=== PATIENT | male | born 1995 | race Caucasian/White ===

== ENCOUNTER 2018-11-16 11:52 | Emergency (ER) | payer BC ==
[~2018-11-16] VITALS: Ht 185.4 cm; Wt 61.2 kg
[2018-11-16] MEDS: IV NORMAL SALINE 1,000ML 1,000 ML IV ONE (12:19)
[2018-11-16] MEDS: ONDANSETRON PF 4 MG/2 ML VIAL. IV ONE (12:19)
--- NOTE | 2018-11-16 12:25 | PHYS DOC ---
Past History Past Medical History: No Pertinent History Past Surgical History: Appendectomy Alcohol Use: Occasionally Drug Use: Marijuana Adult General Chief Complaint Chief Complaint: ABDOMINAL PAIN HPI HPI 22-year-old male presents with central abdominal pain and vomiting. The patient had his appendix removed 8 days ago. 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 He presents today with abdominal pain just above the umbilical surgical site. He tells me he's had intermittent severe pain episodes over the last couple of years. At first they thought he had a hiatal hernia. They took his appendix out 8 days ago after another episode of pain. The patient has had vomiting. He denies fever or chills. Review of Systems Review of Systems Constitutional: Denies fever or chills [] Eyes: Denies change in visual acuity, redness, or eye pain [] HENT: Denies nasal congestion or sore throat [] Respiratory: Denies cough or shortness of breath [] Cardiovascular: No additional information not addressed in HPI [] GI: Central abdominal pain, nausea, vomiting. Denies bloody stools or diarrhea [ ] : Denies dysuria or hematuria [] Musculoskeletal: Denies back pain or joint pain [] Integument: Denies rash or skin lesions [] Neurologic: Denies headache, focal weakness or sensory changes [] Endocrine: Denies polyuria or polydipsia [] All other systems were reviewed and found to be within normal limits, except as documented in this note. Current Medications Current Medications Current Medications Medications (Trade) Dose Ordered Sig/Thaina Start Time Stop Time Status Last Admin Dose Admin Ondansetron HCl (Zofran) 4 mg 1X ONCE 11/16/18 12:15 11/16/18 12:16 UNV 11/16/18 12:19 4 MG Sodium Chloride 1,000 ml @ 1,000 mls/hr 1X ONCE 11/16/18 12:15 11/16/18 13:14 UNV 11/16/18 12:19 1,000 MLS/HR Physical Exam Physical Exam Constitutional: Well developed, well nourished, no acute distress, non-toxic appearance. [] HENT: Normocephalic, atraumatic, bilateral external ears normal, oropharynx moist, no oral exudates, nose normal. [] Eyes: PERRLA, EOMI, conjunctiva normal, no discharge. [] Neck: Normal range of motion, no tenderness, supple, no stridor. [] Cardiovascular:Heart rate regular rhythm, no murmur [] Lungs & Thorax: Bilateral breath sounds clear to auscultation [] Abdomen: Vomiting Bowel sounds normal, soft, periumbilical tenderness without guarding, no masses, no pulsatile masses. [] Skin: Warm, dry, no erythema, no rash. [] Back: No tenderness, no CVA tenderness. [] Extremities: No tenderness, no cyanosis, no clubbing, ROM intact, no edema. [] Neurologic: Alert and oriented X 3, normal motor function, normal sensory function, no focal deficits noted. [] Psychologic: Affect normal, judgement normal, mood normal. [] EKG EKG [] Radiology/Procedures Radiology/Procedures [] Impressions: PQRS Compliance statement: One or more of the following individualized dose reduction techniques were utilized for this examination: 1. Automated exposure control. 2. Adjustment of the mA and/or kV according to patient size. 3. Use of iterative reconstruction technique. Indication:Appendectomy eight days ago. Pt has abdominal/sternal epigastric pain, severe vomiting, nausea

TECHNIQUE: CT abdomen and pelvis with IV contrast with multiplanar reformats. COMPARISON: None FINDINGS: Heart is normal in size. No pericardial or pleural effusion. Clear lung bases. Liver, spleen, gallbladder, pancreas, adrenals within normal limits. 3 mm nonobstructing stone in the left kidney. No hydronephrosis. No suspicious renal lesion. No enlarged retroperitoneal or pelvic adenopathy. No free pelvic fluid or ascites. Status post appendectomy. No significant right lower quadrant inflammatory changes. No fluid collection. The prostate and seminal vesicles show no large mass. Urinary bladder is within normal limits. No pneumoperitoneum or pneumatosis intestinalis. Circumferential wall thickening is seen of the scattered loops of small bowel. No suspicious bony lesion. IMPRESSION: 1. Circumferential wall thickening of the scattered loops of small bowel may suggest enteritis. 2. Pontine nonobstructing left renal stone. Electronically signed by: Duy Colin DO (11/16/2018 12:47 PM) [id number] Course & Med Decision Making Course & Med Decision Making Pertinent Labs and Imaging studies reviewed. (See chart for details) The patient's labs are unremarkable. His urinalysis is unremarkable. His CT scan does show some circumferential wall thickening of the small bowel consistent with enteritis. This is likely viral. I will treat him with conservative measures. If he continues to have episodes like this, he should follow up with his PCP and consider further testing for possible Crohn's disease. [] Dragon Disclaimer Dragon Disclaimer This electronic medical record was generated, in whole or in part, using a voice recognition dictation system. Departure Departure: Impression: Primary Impression: Viral enteritis Disposition: HOME, SELF-CARE Condition: STABLE Referrals: PCP,FRANCO (PCP) Patient Instructions: Gastritis, Adult Scripts Ondansetron (ONDANSETRON ODT) 4 Mg Tab.rapdis 1 TAB PO PRN Q6-8HRS PRN for NAUSEA/VOMITING, #16 TAB Prov: GEORGE VILLATORO DO 11/16/18 GEORGE VILLATORO DO Nov 16, 2018 12:25
[2018-11-16 12:26] LABS: BASO % 0 % (0-3); EOS % 1 % (0-3); HEMATOCRIT 52.1 % (39.0-53.0); HEMOGLOBIN 17.7 g/dL (13.0-17.5); LYMPH # 1.3 x10^3/uL (1.0-4.8); LYMPH % 18 % (24-48); MEAN CORPUSCULAR HEMOGLOBIN 31 pg (25-35); MEAN CORPUSCULAR HGB CONC 34 g/dL (31-37); MEAN CORPUSCULAR VOLUME 90 fL (79-100); MONO % 14 % (0-9); NEUT # 4.9 x10^3uL (1.8-7.7); NEUT % 67 % (31-73); PLATELET COUNT 223 x10^3/uL (140-400); RED BLOOD COUNT 5.77 x10^6/uL (4.30-5.70); RED CELL DISTRIBUTION WIDTH 13.6 % (11.5-14.5); WHITE BLOOD COUNT 7.3 x10^3/uL (4.0-11.0)
[2018-11-16] MEDS: HYDROmorphone PF 1 MG/ML DISP.SYRIN IV ONE ×2 (12:28→14:08)
[2018-11-16] MEDS: IOHEXOL 300 MG/ML 75 ML VIAL. IV ONE (12:32)
[2018-11-16 12:40] LABS: ALBUMIN 4.8 g/dL (3.4-5.0); ALBUMIN/GLOBULIN RATIO 1.3 (1.0-1.7); CALCIUM 9.7 mg/dL (8.5-10.1); GFR 92.6; POTASSIUM 3.1 mmol/L (3.5-5.1); TOTAL BILIRUBIN 0.9 mg/dL (0.2-1.0); TOTAL PROTEIN 8.5 g/dL (6.4-8.2)
--- NOTE | 2018-11-16 12:52 | RAD ---
PQRS Compliance statement: One or more of the following individualized dose reduction techniques were utilized for this examination: 1. Automated exposure control. 2. Adjustment of the mA and/or kV according to patient size. 3. Use of iterative reconstruction technique. Indication:Appendectomy eight days ago. Pt has abdominal/sternal epigastric pain, severe vomiting, nausea

TECHNIQUE: CT abdomen and pelvis with IV contrast with multiplanar reformats. COMPARISON: None FINDINGS: Heart is normal in size. No pericardial or pleural effusion. Clear lung bases. Liver, spleen, gallbladder, pancreas, adrenals within normal limits. 3 mm nonobstructing stone in the left kidney. No hydronephrosis. No suspicious renal lesion. No enlarged retroperitoneal or pelvic adenopathy. No free pelvic fluid or ascites. Status post appendectomy. No significant right lower quadrant inflammatory changes. No fluid collection. The prostate and seminal vesicles show no large mass. Urinary bladder is within normal limits. No pneumoperitoneum or pneumatosis intestinalis. Circumferential wall thickening is seen of the scattered loops of small bowel. No suspicious bony lesion. IMPRESSION: 1. Circumferential wall thickening of the scattered loops of small bowel may suggest enteritis. 2. Pontine nonobstructing left renal stone. Electronically signed by: Duy Colin DO (11/16/2018 12:47 PM) [id number]
[2018-11-16 13:33] LABS: BILIRUBIN,URINE NEG (NEG); CLARITY,URINE CLEAR; COLOR,URINE YELLOW; GLUCOSE,URINE NEG (NEG); NITRITE,URINE NEG (NEG); UROBILINOGEN,URINE 0.2 mg/dL (0.2 mg/dL)
[2018-11-16 13:34] LABS: BACTERIA,URINE 0 /HPF (0-FEW); RBC,URINE RARE /HPF (0-2); SQUAMOUS EPITHELIAL CELL,UR FEW /LPF; WBC,URINE RARE /HPF (0-4)
[2018-11-16] MEDS ORDERED: ONDA4TAB12 PO (13:42)
[2018-11-16 14:18] VITALS: BP 127/78
== END 2018-11-16 14:24 | disposition home or self-care (01) ==
LOC: ER 11:52
DX: A08.4 Viral intestinal infection, unspecified (principal); R11.2 Nausea with vomiting, unspecified; Z90.89 Acquired absence of other organs
CPT/HCPCS: 36415; 74177; 80053; 81001; 83690; 85025; 96361; 96374; 96375; 96376; J1170; J2405; Q9967; 99284-25; J7030

== ENCOUNTER 2018-11-18 07:24 | Emergency (ER) | payer BC ==
[~2018-11-18] VITALS: Ht 170.2 cm; Wt 63.5 kg
[~2018-11-18 07:24] MED LIST: ONDA4TAB12 PO
[2018-11-18] MEDS ORDERED: IV NORMAL SALINE 1,000ML 1,000 ML IV SCH (07:35)
[2018-11-18 07:36] VITALS: BP 147/103
--- NOTE | 2018-11-18 07:51 | PHYS DOC ---
Past History Past Medical History: No Pertinent History Past Surgical History: Appendectomy Alcohol Use: Occasionally Drug Use: Marijuana Adult General Chief Complaint Chief Complaint: GI PROBLEM HPI HPI Patient is a 22-year-old male who presents with complaint of abdominal pain with nausea and vomiting. Patient was seen here a couple of days ago and thickening of the small intestine was found. Patient has been scheduled to see a GI specialist and has an appointment for next Thursday. Patient states that he has been taking Zofran that was prescribed but states that every time he takes that he throws up. Patient rates his pain to be severe and states that every time he tries to have a bowel movement, he starts to have abdominal pain. That' s when his vomiting starts. Review of Systems Review of Systems Constitutional: Denies fever or chills [] Respiratory: Denies cough or shortness of breath [] Cardiovascular: No additional information not addressed in HPI [] GI: Complains of abdominal pain with nausea and vomiting. Denies diarrhea [] Neurologic: Denies headache, focal weakness or sensory changes [] All other systems were reviewed and found to be within normal limits, except as documented in this note. Current Medications Current Medications Current Medications Medications (Trade) Dose Ordered Sig/Thania Start Time Stop Time Status Last Admin Dose Admin Butorphanol Tartrate (Stadol) 1 mg 1X ONCE 11/18/18 08:10 11/18/18 08:11 Diphenhydramine HCl (Benadryl) 25 mg 1X ONCE 11/18/18 08:10 11/18/18 08:11 Metoclopramide HCl (Reglan Vial) 10 mg 1X ONCE 11/18/18 08:10 11/18/18 08:11 Sodium Chloride 1,000 ml @ 1,000 mls/hr Q1H 11/18/18 07:35 11/18/18 08:34 Allergies Allergies Allergies Coded Allergies Type Severity Reaction Last Updated Verified No Known Drug Allergies 11/16/18 No Physical Exam Physical Exam Constitutional: Well developed, well nourished, no acute distress, non-toxic appearance. [] HENT: Normocephalic, atraumatic, bilateral external ears normal, oropharynx moist, no oral exudates, nose normal. [] Eyes: PERRLA, EOMI, conjunctiva normal, no discharge. [] Neck: Normal range of motion, no tenderness, supple, no stridor. [] Cardiovascular: Regular rate and rhythm [] Lungs & Thorax: Bilateral breath sounds clear to auscultation [] Abdomen: Bowel sounds normal, soft, with diffuse reported tenderness. [] Skin: Warm, dry, no erythema, no rash. [] Extremities: No tenderness, no cyanosis, no clubbing, ROM intact, no edema. [] Neurologic: Alert and oriented X 3, no focal deficits noted. [] Current Patient Data Vital Signs Vital Signs Date Time Temp Pulse Resp B/P (MAP) Pulse Ox O2 Delivery O2 Flow Rate FiO2 11/18/18 07:36 98.7 75 24 99 Room Air EKG EKG [] Radiology/Procedures Radiology/Procedures [] Course & Med Decision Making Course & Med Decision Making Pertinent Labs and Imaging studies reviewed. (See chart for details) [] Dragon Disclaimer Dragon Disclaimer This electronic medical record was generated, in whole or in part, using a voice recognition dictation system. Departure Departure: Impression: Primary Impression: Generalized abdominal pain Additional Impression: Nausea & vomiting Disposition: 01 HOME, SELF-CARE Condition: STABLE Referrals: PCP,NO (PCP) Patient Instructions: Abdominal Migraine, Nausea and Vomiting Scripts Polyethylene Glycol 3350 (MIRALAX) 17 Gm Powd.pack 1 PACKET PO DAILY PRN for CONSTIPATION, #14 PACKET Prov: KURTIS RICHTER Jr. DO 11/18/18 Metoclopramide Hcl (REGLAN) 10 Mg Tablet 1 TAB PO QID PRN for NAUSEA/VOMITING, #20 TAB Prov: KURTIS RICHTER Jr. DO 11/18/18 Problem Qualifiers Additional Impression: Nausea & vomiting Vomiting type: unspecified Vomiting Intractability: unspecified Qualified Codes: R11.2 - Nausea with vomiting, unspecified KURTIS RICHTER Jr. DO Nov 18, 2018 07:51
[2018-11-18 08:02] LABS: BASO % 1 % (0-3); EOS # 0.1 x10^3/uL (0.0-0.7); EOS % 2 % (0-3); HEMATOCRIT 50.3 % (39.0-53.0); LYMPH % 61 % (24-48); MEAN CORPUSCULAR HEMOGLOBIN 30 pg (25-35); MEAN CORPUSCULAR HGB CONC 34 g/dL (31-37); MEAN CORPUSCULAR VOLUME 90 fL (79-100); MONO # 0.7 x10^3/uL (0.0-1.1); MONO % 21 % (0-9); NEUT # 0.5 x10^3uL (1.8-7.7); NEUT % 15 % (31-73); PLATELET COUNT 182 x10^3/uL (140-400); RED BLOOD COUNT 5.58 x10^6/uL (4.30-5.70); RED CELL DISTRIBUTION WIDTH 13.5 % (11.5-14.5); WHITE BLOOD COUNT 3.3 x10^3/uL (4.0-11.0)
[2018-11-18] MEDS ORDERED: METOCLOPRAMIDE HCL 10 MG/2 ML VIAL. IV ONE (08:10)
[2018-11-18] MEDS ORDERED: BUTORPHANOL 2 MG VIAL. IV ONE (08:10)
[2018-11-18] MEDS ORDERED: diphenhydrAMINE 50 MG/ML VIAL IVP ONE (08:10)
[2018-11-18 08:15] LABS: ALBUMIN 4.5 g/dL (3.4-5.0); ALBUMIN/GLOBULIN RATIO 1.3 (1.0-1.7); CALCIUM 9.6 mg/dL (8.5-10.1); CREATININE 1.1 mg/dL (0.7-1.3); POTASSIUM 3.2 mmol/L (3.5-5.1); TOTAL PROTEIN 8.1 g/dL (6.4-8.2)
[2018-11-18 09:20] LABS: BACTERIA,URINE 0 /HPF (0-FEW); BILIRUBIN,URINE NEG (NEG); CLARITY,URINE CLEAR; COLOR,URINE YELLOW; GLUCOSE,URINE NEG (NEG); NITRITE,URINE NEG (NEG); RBC,URINE RARE /HPF (0-2); SQUAMOUS EPITHELIAL CELL,UR OCC /LPF; UROBILINOGEN,URINE 0.2 mg/dL (0.2 mg/dL); WBC,URINE 0 /HPF (0-4)
[2018-11-18 09:24] LABS: AMPHETAMINE/METHAMPHETAMINE NEG (NEG); BARBITURATES NEG (NEG); BENZODIAZEPINES NEG (NEG); CANNABINOIDS POS (NEG); COCAINE NEG (NEG); METHADONE NEG (NEG); OPIATES NEG (NEG); PHENCYCLIDINE NEG (NEG)
[2018-11-18] MEDS ORDERED: METO10TA81 PO (09:41)
[2018-11-18] MEDS ORDERED: POLY17PO5 PO (09:41)
[2018-11-18] MEDS ORDERED: POTASSIUM CHLORIDE 20 MEQ TABLET.ER. PO ONE (09:50)
== END 2018-11-18 09:50 | disposition home or self-care (01) ==
LOC: ER 07:24
DX: R10.84 Generalized abdominal pain (principal); R11.2 Nausea with vomiting, unspecified; Z90.89 Acquired absence of other organs
CPT/HCPCS: 36415; 80053; 80307; 81001; 83690; 85025; 96361; 96374; 96375; 99283; J0595; J1200; J2765; J7030

== ENCOUNTER → 2018-11-29 | Outpatient (CLI) | payer BC ==
[2018-11-18 07:36] VITALS: BP 147/103
[~2018-11-29] MED LIST changes: +METO10TA81 PO; +POLY17PO5 PO
[2018-11-29 11:29] LABS: BASO % 0 % (0-3); EOS % 1 % (0-3); HEMATOCRIT 48.1 % (39.0-53.0); HEMOGLOBIN 16.1 g/dL (13.0-17.5); LYMPH # 0.8 x10^3/uL (1.0-4.8); LYMPH % 30 % (24-48); MEAN CORPUSCULAR HEMOGLOBIN 31 pg (25-35); MEAN CORPUSCULAR HGB CONC 34 g/dL (31-37); MEAN CORPUSCULAR VOLUME 92 fL (79-100); MONO # 0.3 x10^3/uL (0.0-1.1); MONO % 13 % (0-9); NEUT # 1.5 x10^3uL (1.8-7.7); NEUT % 56 % (31-73); PLATELET COUNT 167 x10^3/uL (140-400); RED BLOOD COUNT 5.25 x10^6/uL (4.30-5.70); RED CELL DISTRIBUTION WIDTH 13.5 % (11.5-14.5); WHITE BLOOD COUNT 2.7 x10^3/uL (4.0-11.0)
== END | disposition home or self-care (01) ==
LOC: LAB 11:05
PROVIDERS: ATTEND Internal Medicine Gastroenterology
DX: R19.4 Change in bowel habit (principal)
CPT/HCPCS: 36415; 85025; 86140

== ENCOUNTER 2019-03-17 12:25 | Emergency (ER) | payer BC ==
[~2019-03-17] VITALS: Ht 182.9 cm; Wt 59.0 kg
[2019-03-17] MEDS ORDERED: IV NORMAL SALINE 1,000ML 1,000 ML IV SCH (12:36)
--- NOTE | 2019-03-17 12:43 | PHYS DOC ---
Past History Past Medical History: No Pertinent History Past Surgical History: Appendectomy Smoking: Cigarettes Alcohol Use: Occasionally Drug Use: Marijuana Adult General Chief Complaint Chief Complaint: [facility]BDOM[facility]AL PAIN [facility] HPI Patient is a 23-year-old male who presents to the emergency department for evaluation. He states this morning he awakened with epigastric abdominal pain, described as an intense cramp. He states he tried to make himself vomit once, to help alleviate his symptoms, but vomited only clear liquid. He did not have any bloody emesis. He states he has chronic diarrhea, but has not followed up with GI in the past as he has been referred to. He denies any change in his bowel habits, or bloody stools, dizziness or lightheadedness, fevers or chills. He has had similar symptoms in the past several times. He does admit to smoking marijuana regularly. He states he does not smoke daily but mostly on weekends. There are no alleviating or exacerbating factors to the patient's symptoms. Review of Systems Review of Systems Constitutional: Denies fever or chills [] Eyes: Denies change in visual acuity, redness, or eye pain [] HENT: Denies nasal congestion or sore throat [] Respiratory: Denies cough or shortness of breath [] Cardiovascular: The patient denies any shortness of breath, chest pain, pa lpitations, or orthopnea [] GI: No additional information not addressed in HPI [] : Denies dysuria or hematuria [] Musculoskeletal: Denies back pain or joint pain [] Integument: Denies rash or skin lesions [] Neurologic: Denies headache, focal weakness or sensory changes [] Endocrine: Denies polyuria or polydipsia [] All other systems were reviewed and found to be within normal limits, except as documented in this note. Allergies Allergies Allergies Coded Allergies Type Severity Reaction Last Updated Verified No Known Drug Allergies 11/16/18 No Physical Exam Physical Exam PHYSICAL EXAM: CONSTITUTIONAL: Well developed, well nourished HEAD: normocephalic, atraumatic EENT: PERRL, EOMI. Conjunctivae normal color, sclerae non-icteric; moist mucous membranes. NECK: Supple, non-tender; no meningismus. LUNGS: Lungs CTA, breathing even and unlabored. Normal air movement. HEART: Regular rate and rhythm, no murmur CHEST: No deformity; non-tender ABDOMEN: The abdomen is soft, normal bowel sounds are present, there is focal epigastric tenderness to palpation, without rebound or guarding, the remainder the abdomen is soft and non-tender, no masses or bruits. EXTREM: Normal ROM; no deformity, no calf tenderness. Normal pulses palpable in all extremities. There is no pedal edema. SKIN: No rash; no diaphoresis NEURO: Alert; normal speech and cognition; CN's grossly intact; strength grossly intact without focal deficit. BACK: No CVA TTP. PSYCHIATRIC: The patient exhibits a moderately anxious affect. Current Patient Data Vital Signs Vital Signs Date Time Temp Pulse Resp B/P (MAP) Pulse Ox O2 Delivery O2 Flow Rate FiO2 03/17/19 12:35 97.4 86 22 143/77 (99) 100 Room Air Lab Results Laboratory Tests Test 03/17/19 12:45 03/17/19 13:01 White Blood Count 8.7 x10^3/uL Red Blood Count 5.57 x10^6/uL Hemoglobin 17.0 g/dL Hematocrit 50.5 % Mean Corpuscular Volume 91 fL Mean Corpuscular Hemoglobin 31 pg Mean Corpuscular Hemoglobin Concent 34 g/dL Red Cell Distribution Width 13.2 % Platelet Count 278 x10^3/uL Neutrophils (%) (Auto) 45 % Lymphocytes (%) (Auto) 46 % Monocytes (%) (Auto) 8 % Eosinophils (%) (Auto) 1 % Basophils (%) (Auto) 1 % Neutrophils # (Auto) 3.8 x10^3uL Lymphocytes # (Auto) 4.0 x10^3/uL Monocytes # (Auto) 0.7 x10^3/uL Eosinophils # (Auto) 0.0 x10^3/uL Basophils # (Auto) 0.1 x10^3/uL Sodium Level 140 mmol/L Potassium Level 3.0 mmol/L Chloride Level 101 mmol/L Carbon Dioxide Level 22 mmol/L Anion Gap 17 Blood Urea Nitrogen 17 mg/dL Creatinine 1.1 mg/dL Estimated GFR (Cockcroft-Gault) 82.2 BUN/Creatinine Ratio 15 Glucose Level 122 mg/dL Calcium Level 9.9 mg/dL Total Bilirubin 0.8 mg/dL Aspartate Amino Transf (AST/SGOT) 18 U/L Alanine Aminotransferase (ALT/SGPT) 25 U/L Alkaline Phosphatase 82 U/L Total Protein 8.2 g/dL Albumin 4.7 g/dL Albumin/Globulin Ratio 1.3 Lipase 92 U/L Urine Collection Type Unknown Urine Color Yellow Urine Clarity Clear Urine pH 5.5 Urine Specific Clayton 1.025 Urine Protein Neg Urine Glucose (UA) Neg mg/dL Urine Ketones (Stick) Trace mg/dL Urine Blood Neg Urine Nitrite Neg Urine Bilirubin Neg Urine Urobilinogen Dipstick 0.2 mg/dL Urine Leukocyte Esterase Neg Urine RBC Occ /HPF Urine WBC 1-4 /HPF Urine Squamous Epithelial Cells Few /LPF Urine Bacteria 0 /HPF Urine Mucus Mod /LPF Current Medications Medications (Trade) Dose Ordered Sig/Thania Route PRN Reason Start Time Stop Time Status Last Admin Dose Admin Haloperidol Lactate (Haldol) 2.5 mg 1X ONCE IVP 03/17/19 13:15 03/17/19 13:16 DC 03/17/19 12:55 Lorazepam (Ativan Inj) 1 mg 1X ONCE IV 03/17/19 13:15 03/17/19 13:16 DC 03/17/19 12:54 Famotidine (Pepcid Vial) 20 mg 1X ONCE IVP 03/17/19 13:15 03/17/19 13:16 DC 03/17/19 12:55 Multi-Ingredient Mouthwash/Gargle (Gi Cocktail) 20 ml 1X ONCE PO 03/17/19 13:15 03/17/19 13:16 DC 03/17/19 12:55 Sodium Chloride 1,000 ml @ 1,000 mls/hr Q1H IV 03/17/19 12:36 03/17/19 13:35 DC 03/17/19 13:00 EKG EKG [] Radiology/Procedures Radiology/Procedures [] Course & Med Decision Making Course & Med Decision Making Pertinent Lab studies reviewed. (See chart for details) []1:50 PM: I went to go back and discussed test results and recheck the patient, but found that that he has eloped from the emergency department. Dragon Disclaimer Dragon Disclaimer This electronic medical record was generated, in whole or in part, using a voice recognition dictation system. Departure Departure: Impression: Primary Impression: Abdominal pain Additional Impression: Nausea & vomiting Disposition: AGAINST MEDICAL ADVICE Condition: STABLE Referrals: PCP,NO (PCP) Problem Qualifiers BUSTER KAYE MD Mar 17, 2019 12:43
[2019-03-17 12:54] LABS: BASO # 0.1 x10^3/uL (0.0-0.2); BASO % 1 % (0-3); EOS % 1 % (0-3); HEMATOCRIT 50.5 % (39.0-53.0); LYMPH % 46 % (24-48); MEAN CORPUSCULAR HEMOGLOBIN 31 pg (25-35); MEAN CORPUSCULAR HGB CONC 34 g/dL (31-37); MEAN CORPUSCULAR VOLUME 91 fL (79-100); MONO # 0.7 x10^3/uL (0.0-1.1); MONO % 8 % (0-9); NEUT # 3.8 x10^3uL (1.8-7.7); NEUT % 45 % (31-73); PLATELET COUNT 278 x10^3/uL (140-400); RED BLOOD COUNT 5.57 x10^6/uL (4.30-5.70); RED CELL DISTRIBUTION WIDTH 13.2 % (11.5-14.5); WHITE BLOOD COUNT 8.7 x10^3/uL (4.0-11.0)
[2019-03-17 13:09] LABS: ALBUMIN 4.7 g/dL (3.4-5.0); ALBUMIN/GLOBULIN RATIO 1.3 (1.0-1.7); CALCIUM 9.9 mg/dL (8.5-10.1); CREATININE 1.1 mg/dL (0.7-1.3); GFR 82.2; TOTAL BILIRUBIN 0.8 mg/dL (0.2-1.0); TOTAL PROTEIN 8.2 g/dL (6.4-8.2)
[2019-03-17 13:10] VITALS: BP 143/77
[2019-03-17] MEDS ORDERED: FAMOTIDINE 20 MG/2 ML VIAL IVP ONE (13:15)
[2019-03-17] MEDS ORDERED: HALOPERIDOL LACT 5 MG/ML VIAL. IVP ONE (13:15)
[2019-03-17] MEDS ORDERED: LIDO:MAALOX 1:1 20 ML SINGLE DOSE. PO ONE (13:15)
[2019-03-17 13:30] LABS: BACTERIA,URINE 0 /HPF (0-FEW); BILIRUBIN,URINE NEG (NEG); CLARITY,URINE CLEAR; COLOR,URINE YELLOW; GLUCOSE,URINE NEG (NEG); NITRITE,URINE NEG (NEG); RBC,URINE OCC /HPF (0-2); SQUAMOUS EPITHELIAL CELL,UR FEW /LPF; UROBILINOGEN,URINE 0.2 mg/dL (0.2 mg/dL)
== END 2019-03-17 13:59 | disposition left against medical advice (07) ==
LOC: ER 12:25
DX: R10.13 Epigastric pain (principal); R11.2 Nausea with vomiting, unspecified; K52.9 Noninfective gastroenteritis and colitis, unspecified; F17.210 Nicotine dependence, cigarettes, uncomplicated; Z90.89 Acquired absence of other organs
CPT/HCPCS: 36415; 80053; 81001; 83690; 85025; 96361; 96374; 96375; 99284; J1630; J2060; J3490; J7030

== ENCOUNTER 2019-11-07 07:48 | Emergency (ER) | payer BC ==
[~2019-11-07] VITALS: Ht 182.9 cm; Wt 57.5 kg
[2019-11-07] MEDS ORDERED: IV NORMAL SALINE 1,000ML 1,000 ML IV ONE (08:15)
--- NOTE | 2019-11-07 08:21 | PHYS DOC ---
Past History Past Medical History: GERD, Other Additional Past Medical Histor: hital hernia Past Surgical History: Appendectomy, Other Additional Past Surgical Histo: right foot surgery Smoking: Cigarettes Alcohol Use: Rarely Drug Use: Marijuana Social History Narrative: last time was thursday night Adult General Chief Complaint Chief Complaint: NAUSEA/VOMITING/[facility] HPI 23-year-old male presents with epigastric abdominal pain and vomiting. The patient had this had symptoms like this for quite some time. He is currently seeing a GI specialist and is getting worked up. No definitive diagnosis has been made. He has had an EGD with illness finding being a hiatal hernia. He does not know how large. The patient's symptoms seem to be early in the morning. When he gets up from bed he has a fullness feeling in his epigastric area. It is a dull pain. Sometimes he is nauseated and vomits, sometimes he does not. After he vomits, sometimes the pain is better for a little while. He has had CT scans and ultrasounds with no significant findings as far as he knows. He is a regular marijuana user. He last used 2 days ago. He is supposed and a proton pump inhibitor daily. He has Zofran at home for vomiting, but did not take any today. He denies fever or chills. Review of Systems Review of Systems Constitutional: Denies fever or chills [] Eyes: Denies change in visual acuity, redness, or eye pain [] HENT: Denies nasal congestion or sore throat [] Respiratory: Denies cough or shortness of breath [] Cardiovascular: No additional information not addressed in HPI [] GI: Epigastric abdominal pain, nausea, vomiting. [] : Denies dysuria or hematuria [] Musculoskeletal: Denies back pain or joint pain [] Integument: Denies rash or skin lesions [] Neurologic: Denies headache, focal weakness or sensory changes [] Endocrine: Denies polyuria or polydipsia [] All other systems were reviewed and found to be within normal limits, except as documented in this note. Current Medications Current Medications Current Medications Medications (Trade) Dose Ordered Sig/Thania Start Time Stop Time Status Last Admin Dose Admin Diphenhydramine HCl (Benadryl) 25 mg 1X ONCE 11/07/19 08:45 11/07/19 08:46 Multi-Ingredient Mouthwash/Gargle (Gi Cocktail) 20 ml 1X ONCE 11/07/19 08:45 11/07/19 08:46 Ondansetron HCl (Zofran) 4 mg 1X ONCE 11/07/19 08:45 11/07/19 08:46 Sodium Chloride 1,000 ml @ 1,000 mls/hr 1X ONCE 11/07/19 08:15 11/07/19 09:14 Allergies Allergies Allergies Coded Allergies Type Severity Reaction Last Updated Verified No Known Drug Allergies 11/07/19 No Physical Exam Physical Exam Constitutional: Well developed, well nourished, no acute distress, non-toxic appearance. [] HENT: Normocephalic, atraumatic, bilateral external ears normal, oropharynx moist, no oral exudates, nose normal. [] Eyes: PERRLA, EOMI, conjunctiva normal, no discharge. [] Neck: Normal range of motion, no tenderness, supple, no stridor. [] Cardiovascular:Heart rate regular rhythm, no murmur [] Lungs & Thorax: Bilateral breath sounds clear to auscultation [] Abdomen: Bowel sounds normal, soft, epigastric tenderness, no masses, no pulsatile masses. [] Skin: Warm, dry, no erythema, no rash. [] Back: No tenderness, no CVA tenderness. [] Extremities: No tenderness, no cyanosis, no clubbing, ROM intact, no edema. [] Neurologic: Alert and oriented X 3, normal motor function, normal sensory function, no focal deficits noted. [] Psychologic: Affect normal, judgement normal, mood anxious. [] Current Patient Data Vital Signs Vital Signs Date Time Temp Pulse Resp B/P (MAP) Pulse Ox O2 Delivery O2 Flow Rate FiO2 11/07/19 07:57 97.5 68 20 131/74 (93) 100 Room Air EKG EKG [] Radiology/Procedures Radiology/Procedures [] Course & Med Decision Making Course & Med Decision Making Pertinent Labs and Imaging studies reviewed. (See chart for details) The patient's labs are unremarkable. For his cough/vomiting I have given the patient 1 L normal saline, 4 mg of Zofran, 20 mg of Pepcid, 40 mg Protonix, and a GI cocktail. His vomiting is only associated with coughing. It appears to be somewhat self-induced. The emesis is just clear fluid. The patient is already seeing a specialist. I don't have any additional ideas to add, though cyclic vomiting from repeat marijuana use is also certainly in the differential. I have given him a Ary 5/325 for pain. He is stable for discharge at this time. [] Dragon Disclaimer Dragon Disclaimer This electronic medical record was generated, in whole or in part, using a voice recognition dictation system. Departure Departure: Impression: Primary Impression: Nausea & vomiting Additional Impression: Epigastric abdominal pain Disposition: 01 HOME, SELF-CARE Condition: STABLE Referrals: PCP,FRANCO (PCP) Patient Instructions: Nausea and Vomiting, [id number] Problem Qualifiers Primary Impression: Nausea & vomiting Vomiting type: unspecified Vomiting Intractability: non-intractable Qualified Codes: R11.2 - Nausea with vomiting, unspecified GEORGE VILLATORO DO Nov 07, 2019 08:21
[2019-11-07 08:37] LABS: BASO # 0.1 x10^3/uL (0.0-0.2); BASO % 1 % (0-3); EOS # 0.1 x10^3/uL (0.0-0.7); EOS % 1 % (0-3); HEMATOCRIT 52.8 % (39.0-53.0); HEMOGLOBIN 17.4 g/dL (13.0-17.5); LYMPH # 2.8 x10^3/uL (1.0-4.8); LYMPH % 39 % (24-48); MEAN CORPUSCULAR HEMOGLOBIN 31 pg (25-35); MEAN CORPUSCULAR HGB CONC 33 g/dL (31-37); MEAN CORPUSCULAR VOLUME 94 fL (79-100); MONO # 0.5 x10^3/uL (0.0-1.1); MONO % 8 % (0-9); NEUT # 3.7 x10^3uL (1.8-7.7); NEUT % 52 % (31-73); PLATELET COUNT 255 x10^3/uL (140-400); RED BLOOD COUNT 5.64 x10^6/uL (4.30-5.70); RED CELL DISTRIBUTION WIDTH 13.6 % (11.5-14.5); WHITE BLOOD COUNT 7.2 x10^3/uL (4.0-11.0)
[2019-11-07 08:42] LABS: CALCIUM 9.6 mg/dL (8.5-10.1); GFR 91.8; POTASSIUM 4.3 mmol/L (3.5-5.1)
[2019-11-07] MEDS ORDERED: FAMOTIDINE 20 MG/2 ML VIAL IVP ONE (08:45)
[2019-11-07] MEDS ORDERED: ONDANSETRON PF 4 MG/2 ML VIAL. IVP ONE (08:45)
[2019-11-07] MEDS ORDERED: diphenhydrAMINE 50 MG/ML VIAL IVP ONE (08:45)
[2019-11-07] MEDS ORDERED: LIDO:MAALOX 1:1 20 ML SINGLE DOSE. PO ONE (08:45)
[2019-11-07] MEDS ORDERED: PANTOPRAZOLE IV 40 MG VIAL. IVP ONE (08:45)
[2019-11-07 08:48] LABS: ALBUMIN 4.5 g/dL (3.4-5.0); ALBUMIN/GLOBULIN RATIO 1.3 (1.0-1.7); TOTAL BILIRUBIN 0.6 mg/dL (0.2-1.0); TOTAL PROTEIN 8.1 g/dL (6.4-8.2)
[2019-11-07] MEDS ORDERED: HYDROcodone/APAP 5/325MG 1 TAB TABLET ONE (09:21)
[2019-11-07] MEDS ORDERED: CAPSAICIN 0.025% TOPICAL CREAM 60GM TUBE. TP STA (09:23)
[2019-11-07] MEDS ORDERED: KETOROLAC 30 MG/ML VIAL. IVP ONE (09:30)
[2019-11-07 09:37] VITALS: BP 133/84
[2019-11-07] MEDS ORDERED: HYDROcodone/APAP 5/325MG 1 TAB TABLET PO ONE (09:45)
[2019-11-07] MEDS ORDERED: MORPHINE SULFATE 4 MG/ML DISP.SYRIN. IV ONE (10:00)
== END 2019-11-07 10:00 | disposition home or self-care (01) ==
LOC: ER 07:48
DX: R10.13 Epigastric pain (principal); R11.2 Nausea with vomiting, unspecified; K21.9 Gastro-esophageal reflux disease without esophagitis; F17.210 Nicotine dependence, cigarettes, uncomplicated; Z98.890 Other specified postprocedural states; Z90.89 Acquired absence of other organs
CPT/HCPCS: 36415; 80053; 83690; 85025; 96361; 96374; 96375; 99285; C9113; J1200; J1885; J2060; J2270; J2405; J3490; J7030

== ENCOUNTER 2020-09-04 08:19 | Emergency (ER) | payer BC ==
[~2020-09-04] VITALS: Ht 182.9 cm; Wt 57.5 kg
[2020-09-04] MEDS ORDERED: FAMOTIDINE 20 MG/2 ML VIAL IVP ONE (08:45)
[2020-09-04] MEDS ORDERED: KETOROLAC 15 MG/ML VIAL. IVP ONE (08:45)
[2020-09-04] MEDS ORDERED: METOCLOPRAMIDE HCL 10 MG/2 ML VIAL. IVP ONE (08:45)
[2020-09-04] MEDS ORDERED: IV NORMAL SALINE 1,000ML 1,000 ML IV ONE (08:45)
[2020-09-04] MEDS ORDERED: diphenhydrAMINE 50 MG/ML VIAL IVP ONE (08:45)
[2020-09-04 08:55] VITALS: BP 136/71
[2020-09-04 09:27] LABS: BASO # 0.1 x10^3/uL (0.0-0.2); BASO % 0 % (0-3); EOS % 0 % (0-3); HEMATOCRIT 52.1 % (39.0-53.0); LYMPH # 2.2 x10^3/uL (1.0-4.8); LYMPH % 17 % (24-48); MEAN CORPUSCULAR HEMOGLOBIN 31 pg (25-35); MEAN CORPUSCULAR HGB CONC 33 g/dL (31-37); MEAN CORPUSCULAR VOLUME 94 fL (79-100); MONO # 0.9 x10^3/uL (0.0-1.1); MONO % 7 % (0-9); NEUT # 9.4 x10^3uL (1.8-7.7); NEUT % 75 % (31-73); PLATELET COUNT 272 x10^3/uL (140-400); RED BLOOD COUNT 5.56 x10^6/uL (4.30-5.70); RED CELL DISTRIBUTION WIDTH 13.3 % (11.5-14.5); WHITE BLOOD COUNT 12.6 x10^3/uL (4.0-11.0)
[2020-09-04 09:28] LABS: CALCIUM 9.8 mg/dL (8.5-10.1); CREATININE 1.2 mg/dL (0.7-1.3); GFR 73.8; POTASSIUM 3.4 mmol/L (3.5-5.1)
[2020-09-04] MEDS ORDERED: ZIPRASIDONE IM 20 MG VIAL. IM ONE (09:45)
[2020-09-04] MEDS ORDERED: ONDANSETRON PF 4 MG/2 ML VIAL. IVP ONE (09:45)
[2020-09-04 09:49] LABS: ALBUMIN 4.7 g/dL (3.4-5.0); ALBUMIN/GLOBULIN RATIO 1.3 (1.0-1.7); TOTAL BILIRUBIN 1.1 mg/dL (0.2-1.0); TOTAL PROTEIN 8.2 g/dL (6.4-8.2)
[2020-09-04 09:51] LABS: BARBITURATES NEG (NEG); BENZODIAZEPINES NEG (NEG); CANNABINOIDS POS (NEG); COCAINE NEG (NEG); METHADONE NEG (NEG); OPIATES POS (NEG); PHENCYCLIDINE NEG (NEG)
[2020-09-04 09:53] LABS: AMPHETAMINE/METHAMPHETAMINE NEG (NEG)
[2020-09-04 10:22] LABS: BACTERIA,URINE FEW /HPF (0-FEW); BILIRUBIN,URINE NEG (NEG); CLARITY,URINE HAZY; COLOR,URINE YELLOW; GLUCOSE,URINE NEG (NEG); NITRITE,URINE NEG (NEG); UROBILINOGEN,URINE 0.2 mg/dL (0.2 mg/dL)
[2020-09-04 10:23] LABS: SQUAMOUS EPITHELIAL CELL,UR OCC /LPF
[2020-09-04] MEDS ORDERED: IV DEXTROSE 5% - 0.9 % NACL 1,000 ML IV ONE (11:00)
[2020-09-04] MEDS ORDERED: IV DEXTROSE 5 %-0.45 % NACL 1,000 ML IV ONE (11:00)
[2020-09-04] MEDS ORDERED: CAPS42.514 TP (12:13)
[2020-09-04] MEDS ORDERED: HYOS0.1265 SL (12:13)
--- NOTE | 2020-09-04 12:14 | PHYS DOC ---
Past History Past Medical History: GERD, Other Additional Past Medical Histor: hital hernia Past Surgical History: Appendectomy, Other Additional Past Surgical Histo: right foot surgery Smoking: Cigarettes Alcohol Use: Rarely Drug Use: Marijuana General Adult EDM: Chief Complaint: ABDOMINAL PAIN HPI: HPI: Patient is a [age] year old [sex] who presents with [] Review of Systems: Review of Systems: Constitutional: Denies fever or chills Eyes: Denies redness or eye pain HENT: Denies nasal congestion or sore throat Respiratory: Denies cough or shortness of breath Cardiovascular: Denies chest pain or palpitations GI: Denies abdominal pain, nausea, or vomiting : Denies dysuria or hematuria Musculoskeletal: Denies back pain or joint pain Integument: Denies rash or skin lesions Neurologic: Denies headache, focal weakness or sensory changes Complete systems were reviewed and found to be within normal limits, except as documented in this note. Current Medications: Current Meds: Current Medications Medications (Trade) Dose Ordered Sig/Thania Start Time Stop Time Status Last Admin Dose Admin Dextrose/Sodium Chloride 1,000 ml @ 1,000 mls/hr 1X ONCE 09/04/20 11:00 09/04/20 11:59 DC 09/04/20 11:00 1,000 MLS/HR Diphenhydramine HCl (Benadryl) 25 mg 1X ONCE 09/04/20 08:45 09/04/20 08:46 DC 09/04/20 08:51 25 MG Famotidine (Pepcid Vial) 20 mg 1X ONCE 09/04/20 08:45 09/04/20 08:46 DC 09/04/20 08:51 20 MG Ketorolac Tromethamine (Toradol 15mg Vial) 15 mg 1X ONCE 09/04/20 08:45 09/04/20 08:46 DC 09/04/20 08:51 15 MG Lorazepam (Ativan Inj) 1 mg 1X ONCE 09/04/20 11:00 09/04/20 11:11 DC 09/04/20 11:00 1 MG Metoclopramide HCl (Reglan Vial) 10 mg 1X ONCE 09/04/20 08:45 09/04/20 08:46 DC 09/04/20 08:51 10 MG Ondansetron HCl (Zofran) 4 mg 1X ONCE 09/04/20 09:45 09/04/20 09:46 DC 09/04/20 10:04 4 MG Sodium Chloride 1,000 ml @ 1,000 mls/hr 1X ONCE 09/04/20 08:45 09/04/20 09:44 DC 09/04/20 08:49 1,000 MLS/HR Ziprasidone (Geodon Im) 10 mg 1X ONCE 09/04/20 09:45 09/04/20 09:46 DC 09/04/20 10:08 10 MG Allergies: Allergies: Allergies Coded Allergies Type Severity Reaction Last Updated Verified No Known Drug Allergies 11/07/19 No Physical Exam: PE: Constitutional: Well developed, well nourished, no acute distress, non-toxic appearance HENT: Normocephalic, atraumatic Eyes: PERRL, EOMI, conjunctiva normal, no discharge Neck: Normal range of motion, no tenderness, supple Lungs & Thorax: No respiratory distress, equal chest rise and fall Abdomen: Soft, no tenderness Skin: Warm, dry, no erythema, no rash Back: No tenderness, no CVA tenderness Extremities: No tenderness, ROM intact, no edema Neurologic: Alert and oriented X 3, normal motor function, normal sensory function, no focal deficits noted Psychologic: Affect normal, judgment normal Current Patient Data: Labs: Laboratory Tests Test 09/04/20 08:45 White Blood Count 12.6 x10^3/uL (4.0-11.0) H Red Blood Count 5.56 x10^6/uL (4.30-5.70) Hemoglobin 17.0 g/dL (13.0-17.5) Hematocrit 52.1 % (39.0-53.0) Mean Corpuscular Volume 94 fL (79-100) Mean Corpuscular Hemoglobin 31 pg (25-35) Mean Corpuscular Hemoglobin Concent 33 g/dL (31-37) Red Cell Distribution Width 13.3 % (11.5-14.5) Platelet Count 272 x10^3/uL (140-400) Neutrophils (%) (Auto) 75 % (31-73) H Lymphocytes (%) (Auto) 17 % (24-48) L Monocytes (%) (Auto) 7 % (0-9) Eosinophils (%) (Auto) 0 % (0-3) Basophils (%) (Auto) 0 % (0-3) Neutrophils # (Auto) 9.4 x10^3uL (1.8-7.7) H Lymphocytes # (Auto) 2.2 x10^3/uL (1.0-4.8) Monocytes # (Auto) 0.9 x10^3/uL (0.0-1.1) Eosinophils # (Auto) 0.0 x10^3/uL (0.0-0.7) Basophils # (Auto) 0.1 x10^3/uL (0.0-0.2) Urine Collection Type Void Urine Color Yellow Urine Clarity Hazy Urine pH 8.5 Urine Specific [place] 1.025 Urine Protein 100 mg/dl (NEG-TRACE) Urine Glucose (UA) Neg mg/dL (NEG) Urine Ketones (Stick) >=160 mg/dL (NEG) Urine Blood Trace (NEG) Urine Nitrite Neg (NEG) Urine Bilirubin Neg (NEG) Urine Urobilinogen Dipstick 0.2 mg/dL (0.2 mg/dL) Urine Leukocyte Esterase Neg (NEG) Urine RBC 3-5 /HPF (0-2) Urine WBC 1-4 /HPF (0-4) Urine Squamous Epithelial Cells Occ /LPF Urine Bacteria Few /HPF (0-FEW) Urine Mucus Mod /LPF Sodium Level 139 mmol/L (136-145) Potassium Level 3.4 mmol/L (3.5-5.1) L Chloride Level 100 mmol/L (98-107) Carbon Dioxide Level 19 mmol/L (21-32) L Anion Gap 20 (6-14) H Blood Urea Nitrogen 14 mg/dL (8-26) Creatinine 1.2 mg/dL (0.7-1.3) Estimated GFR (Cockcroft-Gault) 73.8 BUN/Creatinine Ratio 12 (6-20) Glucose Level 153 mg/dL (70-99) H Calcium Level 9.8 mg/dL (8.5-10.1) Total Bilirubin 1.1 mg/dL (0.2-1.0) H Aspartate Amino Transferase (AST) 16 U/L (15-37) Alanine Aminotransferase (ALT) 17 U/L (16-63) Alkaline Phosphatase 66 U/L (46-116) Total Protein 8.2 g/dL (6.4-8.2) Albumin 4.7 g/dL (3.4-5.0) Albumin/Globulin Ratio 1.3 (1.0-1.7) Lipase 65 U/L (73-393) L Urine Opiates Screen Pos (NEG) Urine Methadone Screen Neg (NEG) Urine Barbiturates Neg (NEG) Urine Phencyclidine Screen Neg (NEG) Urine Amphetamine/Methamphetamine Neg (NEG) Urine Benzodiazepines Screen Neg (NEG) Urine Cocaine Screen Neg (NEG) Urine Cannabinoids Screen Pos (NEG) Urine Ethyl Alcohol Neg (NEG) Vital Signs: Vital Signs Date Time Temp Pulse Resp B/P (MAP) Pulse Ox O2 Delivery O2 Flow Rate FiO2 09/04/20 08:55 97.8 90 22 136/71 (92) 100 Room Air EKG: EKG: [] Radiology/Procedures: Radiology/Procedures: [] Course & Med Decision Making: Course & Med Decision Making Pertinent Lab studies reviewed. (See chart for details) Patient stable for discharge with outpatient follow-up with PCP. Discussed findings and plan with patient, who acknowledges understanding and agreement. Stanton Disclaimer: Stanton Disclaimer: This electronic medical record was generated, in whole or in part, using a voice recognition dictation system. Departure Departure: Impression: Primary Impression: Epigastric abdominal pain Additional Impression: Nausea & vomiting Qualified Codes: R11.2 - Nausea with vomiting, unspecified Disposition: 01 DC HOME SELF CARE/HOMELESS Condition: STABLE Referrals: PCPFRANCO (PCP) KRISTIE BURROWS MD Patient Instructions: Abdominal Pain, [id number], Clear Liquid Diet, [id number], Cyclic Vomiting Syndrome, Marijuana Abuse and Chemical Dependency, Nausea and Vomiting, [id number] Additional Instructions: Increase fluid hydration. Take previously prescribed pain and nausea medications as needed. Continue use of Protonix. Scripts Capsaicin (CAPSAICIN) 42.5 Gm Cream..g. 1 JOSÉ MIGUEL TP TID PRN for PAIN, #1 TUBE 0 Refills Prov: YUE VILLEGAS DO 09/04/20 Hyoscyamine Sulfate (LEVSIN-SL) 0.125 Mg Tab.subl 0.125 MG SL Q4-6HRS PRN for PAIN, #14 TAB Prov: YUE VILLEGAS DO 09/04/20 YUE VILLEGAS DO Sep 04, 2020 12:14
== END 2020-09-04 12:37 | disposition home or self-care (01) ==
LOC: ER 08:19
DX: R10.13 Epigastric pain (principal); R11.2 Nausea with vomiting, unspecified; K21.9 Gastro-esophageal reflux disease without esophagitis; F17.210 Nicotine dependence, cigarettes, uncomplicated; Z90.89 Acquired absence of other organs
CPT/HCPCS: 36415; 80053; 80307; 81001; 83690; 85025; 96361; 96372; 96374; 96375; 99284; J1200; J1885; J2060; J2405; J2765; J3010; J3486; J3490; J7030

== ENCOUNTER 2021-05-25 07:15 | Emergency (ER) | payer BC ==
[~2021-05-25] VITALS: Ht 182.9 cm; Wt 56.6 kg
[~2021-05-25 07:15] MED LIST changes: +CAPS42.514 TP; +HYOS0.1265 SL
[2021-05-25 07:30] VITALS: BP 122/81
[2021-05-25] MEDS ORDERED: ONDANSETRON PF 4 MG/2 ML VIAL. IVP ONE (07:45)
[2021-05-25] MEDS ORDERED: MORPHINE SULFATE 4 MG/ML DISP.SYRIN. IV ONE ×2 (07:45→09:00)
[2021-05-25] MEDS ORDERED: IV NORMAL SALINE 1,000ML 1,000 ML IV ONE (07:45)
[2021-05-25] MEDS ORDERED: MORPHINE SULFATE 4 MG/ML DISP.SYRIN. ONE (07:51)
--- NOTE | 2021-05-25 07:53 | PHYS DOC ---
Past History Past Medical History: GERD, Other Additional Past Medical Histor: HIATIAL HERNIA Past Surgical History: No Surgical History Additional Past Surgical Histo: right foot surgery Smoking: Cigarettes Alcohol Use: Rarely Drug Use: Marijuana General Adult EDM: Chief Complaint: ABDOMINAL PAIN HPI: HPI: 25-year-old male presents with epigastric abdominal pain and vomiting. He woke up around 3:30 in the morning with vomiting. He thinks it is likely because he had hot wings last night for dinner. He has reflux and a known hiatal hernia. The patient has not seen his GI doctor in a while. He does take Protonix daily. He thinks maybe he needs to go back to his GI doc and see if his hernia has gotten worse. His primary concern is the vomiting at this time. He denies fever or chills. Review of Systems: Review of Systems: Constitutional: Denies fever or chills Eyes: Denies change in visual acuity HENT: Denies nasal congestion or sore throat Respiratory: Denies cough or shortness of breath Cardiovascular: Denies chest pain or edema GI: Denies abdominal pain, nausea, vomiting, bloody stools or diarrhea : Denies dysuria Musculoskeletal: Denies back pain or joint pain Integument: Denies rash Neurologic: Denies headache, focal weakness or sensory changes Endocrine: Denies polyuria or polydipsia Lymphatic: Denies swollen glands Psychiatric: Denies depression or anxiety Current Medications: Current Meds: Current Medications Medications (Trade) Dose Ordered Sig/Thania Start Time Stop Time Status Last Admin Dose Admin Morphine Sulfate (Morphine 4mg Syringe) 4 mg 1X ONCE 05/25/21 07:45 05/25/21 07:46 UNV Ondansetron HCl (Zofran) 4 mg 1X ONCE 05/25/21 07:45 05/25/21 07:46 UNV Sodium Chloride 1,000 ml @ 1,000 mls/hr 1X ONCE 05/25/21 07:45 05/25/21 08:44 UNV Allergies: Allergies: Allergies Coded Allergies Type Severity Reaction Last Updated Verified No Known Drug Allergies 11/07/19 No Physical Exam: PE: Constitutional: Well developed, well nourished, mild acute distress, non-toxic appearance. [] HENT: Normocephalic, atraumatic, bilateral external ears normal, oropharynx moist, no oral exudates, nose normal. [] Eyes: PERRLA, EOMI, conjunctiva normal, no discharge. [] Neck: Normal range of motion, no tenderness, supple, no stridor. [] Cardiovascular: Heart rate regular rhythm, no murmur [] Lungs & Thorax: Bilateral breath sounds clear to auscultation [] Abdomen: Bowel sounds normal, soft, mild epigastric tenderness, no masses, no pulsatile masses. [] Skin: Warm, dry, no erythema, no rash. [] Back: No tenderness, no CVA tenderness. [] Extremities: No tenderness, no cyanosis, no clubbing, ROM intact, no edema. [] Neurologic: Alert and oriented X 3, normal motor function, normal sensory function, no focal deficits noted. [] Psychologic: Affect normal, judgement normal, mood normal. [] Current Patient Data: Vital Signs: Vital Signs Date Time Temp Pulse Resp B/P (MAP) Pulse Ox O2 Delivery O2 Flow Rate FiO2 05/25/21 07:30 97.9 74 20 122/81 95 Room Air EKG: EKG: [] Radiology/Procedures: Radiology/Procedures: [] Heart Score: C/O Chest Pain: N/A Risk Factors: Risk Factors: DM, Current or recent (<one month) smoker, HTN, HLP, family history of CAD, obesity. Risk Scores: Score 0 - 3: 2.5% MACE over next 6 weeks - Discharge Home Score 4 - 6: 20.3% MACE over next 6 weeks - Admit for Clinical Observation Score 7 - 10: 72.7% MACE over next 6 weeks - Early Invasive Strategies Course & Med Decision Making: Course & Med Decision Making Pertinent Labs and Imaging studies reviewed. (See chart for details) The patient's labs are remarkable for slightly elevated white count and an increased anion gap. This could be due to his vomiting. His potassium is slightly low as well. We have given him a liter normal saline and 25 mg of Benadryl along with 4 mg of morphine for pain. He already took 8 mg of Zofran ODT at home. The patient was still nauseated so I gave him an additional 10 mg of Reglan which she states works for him pretty well usually. Also gave him a second dose of pain medication. He is feeling better. He is stable for discharge at this time. [] Dragon Disclaimer: Dragon Disclaimer: This electronic medical record was generated, in whole or in part, using a voice recognition dictation system. Departure Departure: Impression: Primary Impression: Epigastric abdominal pain Additional Impression: Nausea & vomiting Qualified Codes: R11.2 - Nausea with vomiting, unspecified Disposition: HOME / SELF CARE / HOMELESS Condition: IMPROVED Referrals: PCPFRANCO (PCP) Patient Instructions: Nausea and Vomiting, [id number] Scripts Metoclopramide Hcl (REGLAN) 10 Mg Tablet 1 TAB PO TID PRN for NAUSEA/VOMITING for 10 Days, #30 TAB 0 Refills Prov: GEORGE VILLATORO DO 05/25/21 GEORGE VILLATORO DO May 25, 2021 07:53
[2021-05-25] MEDS ORDERED: FAMOTIDINE 20 MG/2 ML VIAL IVP ONE (08:00)
[2021-05-25] MEDS ORDERED: diphenhydrAMINE 50 MG/ML VIAL IVP ONE (08:00)
[2021-05-25 08:17] LABS: CALCIUM 9.3 mg/dL (8.5-10.1); CREATININE 1.1 mg/dL (0.7-1.3); GFR 80.9; POTASSIUM 3.4 mmol/L (3.5-5.1)
[2021-05-25 08:22] LABS: ALBUMIN 4.4 g/dL (3.4-5.0); ALBUMIN/GLOBULIN RATIO 1.3 (1.0-1.7); TOTAL BILIRUBIN 0.7 mg/dL (0.2-1.0); TOTAL PROTEIN 7.8 g/dL (6.4-8.2)
[2021-05-25 08:28] LABS: BASO # 0.1 x10^3/uL (0.0-0.2); BASO % 1 % (0-3); EOS % 0 % (0-3); HEMATOCRIT 49.1 % (39.0-53.0); HEMOGLOBIN 16.4 g/dL (13.0-17.5); LYMPH # 1.8 x10^3/uL (1.0-4.8); LYMPH % 14 % (24-48); MEAN CORPUSCULAR HEMOGLOBIN 32 pg (25-35); MEAN CORPUSCULAR HGB CONC 33 g/dL (31-37); MEAN CORPUSCULAR VOLUME 94 fL (79-100); MONO # 0.6 x10^3/uL (0.0-1.1); MONO % 5 % (0-9); NEUT # 10.3 x10^3uL (1.8-7.7); NEUT % 81 % (31-73); PLATELET COUNT 280 x10^3/uL (140-400); RED CELL DISTRIBUTION WIDTH 13.3 % (11.5-14.5); WHITE BLOOD COUNT 12.8 x10^3/uL (4.0-11.0)
[2021-05-25] MEDS ORDERED: METOCLOPRAMIDE HCL 10 MG/2 ML VIAL. IVP ONE (09:00)
[2021-05-25] MEDS ORDERED: METO10TA81 PO (09:02)
== END 2021-05-25 09:21 | disposition home or self-care (01) ==
LOC: ER 07:15
DX: R10.13 Epigastric pain (principal); R11.2 Nausea with vomiting, unspecified; K21.9 Gastro-esophageal reflux disease without esophagitis; F17.210 Nicotine dependence, cigarettes, uncomplicated
CPT/HCPCS: 36415; 80053; 83690; 85025; 96361; 96374; 96375; 96376; 99284; J1200; J2270; J2765; J3490; J7030

== ENCOUNTER 2021-05-27 08:42 | Emergency (ER) | payer BC ==
[~2021-05-27] VITALS: Ht 182.9 cm; Wt 63.0 kg
[2021-05-27 09:11] VITALS: BP 150/79
[2021-05-27] MEDS ORDERED: ONDANSETRON PF 4 MG/2 ML VIAL. IVP ONE (09:30)
--- NOTE | 2021-05-27 09:39 | PHYS DOC ---
Past History Past Medical History: GERD, Other Additional Past Medical Histor: HIATIAL HERNIA Past Surgical History: No Surgical History Additional Past Surgical Histo: right foot surgery Smoking: Cigarettes Alcohol Use: None Drug Use: Marijuana Adult General Chief Complaint Chief Complaint: ABDOMINAL PAIN HPI HPI Patient is a 25-year-old male presenting for abdominal pain. This is an acute on chronic problem. He was here approximately 48 hours ago for same symptoms. States it is all related to previous diagnosis of a hiatal hernia. He was seen in our ER with grossly unremarkable labs and was positive for opiates that are not prescribed to him and cannabinoids at that time. States his symptoms improved with IV fluid rehydration, pain meds and antiemetics. He was advised to contact GI services for outpatient follow-up but reports recurrence of symptoms today prompting him to come in for repeat evaluation and treatment. No fever, sick contacts, chest pain, shortness of breath, ripping or tearing sensation in abdomen, no prior abdominal surgeries, no bladder or bowel incontinence. States he has had decreased p.o. intake, feels dehydrated, and has 9/10 severity epigastric pain. Denies any recent alcohol use Review of Systems Review of Systems Fourteen body systems of review of systems have been reviewed. See HPI for pertinent positives and negative responses, other mendoza all other systems are negative, non-pertinent or non-contributory Current Medications Current Medications Current Medications Medications (Trade) Dose Ordered Sig/Thania Start Time Stop Time Status Last Admin Dose Admin Ondansetron HCl (Zofran) 4 mg 1X ONCE 05/27/21 09:30 05/27/21 09:31 DC 05/27/21 09:24 4 MG Allergies Allergies Allergies Coded Allergies Type Severity Reaction Last Updated Verified No Known Drug Allergies 11/07/19 No Physical Exam Physical Exam Constitutional: Well developed, well nourished, no acute distress, non-toxic appearance. HENT: Normocephalic, atraumatic, bilateral external ears normal, oropharynx moist, no oral exudates, nose normal. Eyes: PERRLA, EOMI, conjunctiva normal, no discharge. Neck: Normal range of motion, no tenderness, supple, no stridor. Cardiovascular: Heart rate regular, sinus rhythm, no murmurs rubs or gallops Lungs & Thorax: Bilateral breath sounds clear to auscultation Abdomen: Bowel sounds normal, soft, no tenderness, no masses, no pulsatile masses. Nonsurgical abdomen, no peritoneal signs Skin: Warm, dry, no erythema, no rash. Back: No tenderness, no CVA tenderness. Extremities: No tenderness, no cyanosis, no clubbing, ROM intact, no edema. Neurologic: Alert and oriented X 3, grossly normal motor & sensory function, no focal deficits noted. Psychologic: Affect normal, judgement normal, mood normal. Current Patient Data Vital Signs Vital Signs Date Time Temp Pulse Resp B/P (MAP) Pulse Ox O2 Delivery O2 Flow Rate FiO2 05/27/21 09:11 98.7 67 20 150/79 100 Room Air Lab Results Laboratory Tests Test 05/27/21 09:15 White Blood Count 11.1 x10^3/uL Red Blood Count 5.26 x10^6/uL Hemoglobin 16.4 g/dL Hematocrit 49.3 % Mean Corpuscular Volume 94 fL Mean Corpuscular Hemoglobin 31 pg Mean Corpuscular Hemoglobin Concent 33 g/dL Red Cell Distribution Width 13.5 % Platelet Count 309 x10^3/uL Neutrophils (%) (Auto) 68 % Lymphocytes (%) (Auto) 25 % Monocytes (%) (Auto) 7 % Eosinophils (%) (Auto) 0 % Basophils (%) (Auto) 0 % Neutrophils # (Auto) 7.5 x10^3uL Lymphocytes # (Auto) 2.7 x10^3/uL Monocytes # (Auto) 0.7 x10^3/uL Eosinophils # (Auto) 0.0 x10^3/uL Basophils # (Auto) 0.0 x10^3/uL Sodium Level 141 mmol/L Potassium Level 3.5 mmol/L Chloride Level 102 mmol/L Carbon Dioxide Level 20 mmol/L Anion Gap 19 Blood Urea Nitrogen 17 mg/dL Creatinine 1.1 mg/dL Estimated GFR (Cockcroft-Gault) 80.9 BUN/Creatinine Ratio 15 Glucose Level 138 mg/dL Calcium Level 9.2 mg/dL Total Bilirubin 0.7 mg/dL Aspartate Amino Transf (AST/SGOT) 20 U/L Alanine Aminotransferase (ALT/SGPT) 24 U/L Alkaline Phosphatase 63 U/L Total Protein 7.4 g/dL Albumin 4.3 g/dL Albumin/Globulin Ratio 1.4 Lipase 90 U/L Current Medications Medications (Trade) Dose Ordered Sig/Thania Route PRN Reason Start Time Stop Time Status Last Admin Dose Admin Ondansetron HCl (Zofran) 4 mg 1X ONCE IVP 05/27/21 09:30 05/27/21 09:31 DC 05/27/21 09:24 Sodium Chloride 1,000 ml @ 1,000 mls/hr 1X ONCE IV 05/27/21 09:45 05/27/21 10:44 DC 05/27/21 09:50 Morphine Sulfate (Morphine 4mg Syringe) 4 mg 1X ONCE IV 05/27/21 09:45 05/27/21 09:46 DC 05/27/21 09:53 Diphenhydramine HCl (Benadryl) 25 mg 1X ONCE IVP 05/27/21 09:45 05/27/21 09:46 DC 05/27/21 09:50 Pantoprazole Sodium (Protonix Vial) 40 mg 1X ONCE IVP 05/27/21 11:00 05/27/21 11:01 UNV Morphine Sulfate (Morphine 4mg Syringe) 4 mg 1X ONCE IV 05/27/21 11:00 05/27/21 11:01 UNV EKG EKG [] Radiology/Procedures Radiology/Procedures [] Heart Score C/O Chest Pain: No Risk Factors: Risk Factors: DM, Current or recent (<one month) smoker, HTN, HLP, family history of CAD, obesity. Risk Scores: Risk Factors: DM, Current or recent (<one month) smoker, HTN, HLP, family history of CAD, obesity. Course & Med Decision Making Course & Med Decision Making HPI vital signs stable. HPI and physical exam nonconcerning for any emergent or surgical issues. Work-up obtained and nonconcerning. Patient responded to IV fluid rehydration, Protonix, Benadryl and pain medication. Reevaluated numerous times with continued improvement in symptoms. Tolerating p.o. prior to ER departure I discussed other potential causes of abdominal pain such as cholecystitis versus appendicitis versus other but all are less likely. This could also be due to ongoing marijuana use. Joint decision to defer CT imaging or other diagnostic studies due to symptomatic improvement Prior return precautions discussed with good understanding. Patient understands need for outpatient PCP and GI follow-up Stanton Disclaimer Dannon Disclaimer This electronic medical record was generated, in whole or in part, using a voice recognition dictation system. Departure Departure: Impression: Primary Impression: Abdominal pain Disposition: HOME / SELF CARE / HOMELESS Condition: STABLE Referrals: PCP,NO (PCP) Patient Instructions: Abdominal Pain (Nonspecific) Additional Instructions: You have been evaluated in the Emergency Department today for abdominal pain. Your evaluation was not suggestive of any emergent condition requiring medical intervention at this time. However, some abdominal problems make take more time to appear. Therefore, it is important for you to watch for any new symptoms or worsening of your current condition. Please follow up with your primary care physician as needed. If you do not have a primary doctor, you can call your insurance company to find one. If you do not have insurance, you can go to the finance/registration department for more assistance. Return to the Emergency Department if you experience worsening pain, persistent fevers greater than 100.4, recurrent vomiting, blood in vomit, blood in stool, dark tarry stool, chest pain, difficulty breathing, or any other concerning symptoms. DARRELL MELCHOR DO May 27, 2021 09:39
[2021-05-27] MEDS ORDERED: IV NORMAL SALINE 1,000ML 1,000 ML IV ONE (09:45)
[2021-05-27] MEDS ORDERED: diphenhydrAMINE 50 MG/ML VIAL IVP ONE (09:45)
[2021-05-27] MEDS ORDERED: MORPHINE SULFATE 4 MG/ML DISP.SYRIN. IV ONE ×2 (09:45→11:00)
[2021-05-27 09:49] LABS: BASO % 0 % (0-3); EOS % 0 % (0-3); HEMATOCRIT 49.3 % (39.0-53.0); HEMOGLOBIN 16.4 g/dL (13.0-17.5); LYMPH # 2.7 x10^3/uL (1.0-4.8); LYMPH % 25 % (24-48); MEAN CORPUSCULAR HEMOGLOBIN 31 pg (25-35); MEAN CORPUSCULAR HGB CONC 33 g/dL (31-37); MEAN CORPUSCULAR VOLUME 94 fL (79-100); MONO # 0.7 x10^3/uL (0.0-1.1); MONO % 7 % (0-9); NEUT # 7.5 x10^3uL (1.8-7.7); NEUT % 68 % (31-73); PLATELET COUNT 309 x10^3/uL (140-400); RED BLOOD COUNT 5.26 x10^6/uL (4.30-5.70); RED CELL DISTRIBUTION WIDTH 13.5 % (11.5-14.5); WHITE BLOOD COUNT 11.1 x10^3/uL (4.0-11.0)
[2021-05-27 09:54] LABS: CALCIUM 9.2 mg/dL (8.5-10.1); CREATININE 1.1 mg/dL (0.7-1.3); GFR 80.9; POTASSIUM 3.5 mmol/L (3.5-5.1)
[2021-05-27 10:00] LABS: ALBUMIN 4.3 g/dL (3.4-5.0); ALBUMIN/GLOBULIN RATIO 1.4 (1.0-1.7); TOTAL BILIRUBIN 0.7 mg/dL (0.2-1.0); TOTAL PROTEIN 7.4 g/dL (6.4-8.2)
[2021-05-27] MEDS ORDERED: PANTOPRAZOLE IV 40 MG VIAL. IVP ONE (11:00)
== END 2021-05-27 11:25 | disposition home or self-care (01) ==
LOC: ER 08:42
DX: R10.9 Unspecified abdominal pain (principal); K21.9 Gastro-esophageal reflux disease without esophagitis
CPT/HCPCS: 36415; 80053; 83690; 85025; 96361; 96374; 96375; 96376; 99285; C9113; J1200; J2270; J2405; J7030

== ENCOUNTER → 2021-08-11 | Emergency (ER) | payer BC ==
[~2021-08-11] VITALS: Ht 182.9 cm; Wt 58.3 kg
[~2021-08-11] MED LIST changes: +FAMOTIDINE 20 MG/2 ML VIAL IVP ONE; +HALOPERIDOL LACT 5 MG/ML VIAL. IVP ONE; +MORPHINE SULFATE 4 MG/ML DISP.SYRIN. IV ONE; +ONDANSETRON PF 4 MG/2 ML VIAL. IVP ONE; +PANT40TA3 PO; +PANTOPRAZOLE IV 40 MG VIAL. IVP ONE; +diphenhydrAMINE 50 MG/ML VIAL IVP ONE
--- NOTE | 2021-08-11 06:26 | PHYS DOC ---
Past History Past Medical History: GERD, Other Additional Past Medical Histor: HIATIAL HERNIA Past Surgical History: No Surgical History Additional Past Surgical Histo: right foot surgery Smoking: Cigarettes Alcohol Use: None Drug Use: Marijuana General Adult EDM: Chief Complaint: ABDOMINAL PAIN HPI: HPI: 25-year-old male presents with epigastric abdominal pain and vomiting. He has had chronic problems with a hiatal hernia in the past. He woke at 2 AM with epigastric pain and started vomiting. Vomiting made the pain worse. He took Zofran, Protonix, and Benadryl without relief. He continued to have vomiting so he came into the ER. Patient is scheduled for an endoscopy in late August by his GI doctor. Patient denies any falls or trauma. This pain is similar to episodes he has had in the past. He denies any alcohol consumption. Patient does use marijuana. Denies fever or chills. Review of Systems: Review of Systems: Constitutional: Denies fever or chills Eyes: Denies change in visual acuity HENT: Denies nasal congestion or sore throat Respiratory: Denies cough or shortness of breath Cardiovascular: Denies chest pain or edema GI: Epigastric abdominal pain, nausea, vomiting. : Denies dysuria Musculoskeletal: Denies back pain or joint pain Integument: Denies rash Neurologic: Denies headache, focal weakness or sensory changes Endocrine: Denies polyuria or polydipsia Lymphatic: Denies swollen glands Psychiatric: Denies depression or anxiety Current Medications: Current Meds: Current Medications Medications (Trade) Dose Ordered Sig/Thania Start Time Stop Time Status Last Admin Dose Admin Diphenhydramine HCl (Benadryl) 25 mg 1X ONCE 08/11/21 06:15 08/11/21 06:16 DC Famotidine (Pepcid Vial) 20 mg 1X ONCE 08/11/21 06:15 08/11/21 06:18 DC Morphine Sulfate (Morphine 4mg Syringe) 4 mg 1X ONCE 08/11/21 06:15 08/11/21 06:16 DC Ondansetron HCl (Zofran) 4 mg 1X ONCE 08/11/21 06:15 08/11/21 06:16 DC Pantoprazole Sodium (Protonix Vial) 40 mg 1X ONCE 08/11/21 06:15 08/11/21 06:16 DC Allergies: Allergies: Allergies Coded Allergies Type Severity Reaction Last Updated Verified No Known Drug Allergies 08/11/21 No Physical Exam: PE: Constitutional: Well developed, well nourished, mild acute distress, non-toxic appearance. [] HENT: Normocephalic, atraumatic, bilateral external ears normal, oropharynx moist, no oral exudates, nose normal. [] Eyes: PERRLA, EOMI, conjunctiva normal, no discharge. [] Neck: Normal range of motion, no tenderness, supple, no stridor. [] Cardiovascular: Heart rate regular rhythm, no murmur [] Lungs & Thorax: Bilateral breath sounds clear to auscultation [] Abdomen: Bowel sounds normal, soft, epigastric tenderness, no masses, no pulsatile masses. [] Skin: Warm, dry, no erythema, no rash. [] Back: No tenderness, no CVA tenderness. [] Extremities: No tenderness, no cyanosis, no clubbing, ROM intact, no edema. [] Neurologic: Alert and oriented X 3, normal motor function, normal sensory function, no focal deficits noted. [] Psychologic: Affect normal, judgement normal, mood anxious. [] Current Patient Data: Vital Signs: Vital Signs Date Time Temp Pulse Resp B/P (MAP) Pulse Ox O2 Delivery O2 Flow Rate FiO2 08/11/21 06:00 97.7 76 28 120/77 (91) 100 Room Air EKG: EKG: [] Radiology/Procedures: Radiology/Procedures: [] Heart Score: C/O Chest Pain: N/A Risk Factors: Risk Factors: DM, Current or recent (<one month) smoker, HTN, HLP, family history of CAD, obesity. Risk Scores: Score 0 - 3: 2.5% MACE over next 6 weeks - Discharge Home Score 4 - 6: 20.3% MACE over next 6 weeks - Admit for Clinical Observation Score 7 - 10: 72.7% MACE over next 6 weeks - Early Invasive Strategies Course & Med Decision Making: Course & Med Decision Making Pertinent Labs and Imaging studies reviewed. (See chart for details) The patient's labs are unremarkable except for an elevated anion gap. The patient has gotten a liter of normal saline, 25 of Benadryl, 20 mg of Pepcid, 40 mg Protonix, 4 mg of morphine. He was still having some nausea type symptoms are ordered 5 mg of Haldol. This is helped the patient significantly he feels like he is ready to go home. He is stable for discharge at this time. [] Dragon Disclaimer: Stanton Disclaimer: This electronic medical record was generated, in whole or in part, using a voice recognition dictation system. Departure Departure: Impression: Primary Impression: Epigastric abdominal pain Disposition: HOME / SELF CARE / HOMELESS Condition: STABLE Referrals: PCP,NO (PCP) Patient Instructions: Abdominal Pain, [id number] GEORGE VILLATORO DO Aug 11, 2021 06:26
[2021-08-11 07:05] LABS: BASO % 0 % (0-3); EOS % 0 % (0-3); HEMATOCRIT 49.8 % (39.0-53.0); HEMOGLOBIN 16.6 g/dL (13.0-17.5); LYMPH # 1.4 x10^3/uL (1.0-4.8); LYMPH % 14 % (24-48); MEAN CORPUSCULAR HEMOGLOBIN 31 pg (25-35); MEAN CORPUSCULAR HGB CONC 33 g/dL (31-37); MEAN CORPUSCULAR VOLUME 94 fL (79-100); MONO # 0.4 x10^3/uL (0.0-1.1); MONO % 4 % (0-9); NEUT # 8.4 x10^3uL (1.8-7.7); NEUT % 82 % (31-73); PLATELET COUNT 289 x10^3/uL (140-400); RED BLOOD COUNT 5.33 x10^6/uL (4.30-5.70); RED CELL DISTRIBUTION WIDTH 13.4 % (11.5-14.5); WHITE BLOOD COUNT 10.3 x10^3/uL (4.0-11.0)
[2021-08-11 07:08] LABS: CALCIUM 9.6 mg/dL (8.5-10.1); CREATININE 1.2 mg/dL (0.7-1.3); GFR 73.2; POTASSIUM 3.6 mmol/L (3.5-5.1)
[2021-08-11 07:12] LABS: ALBUMIN 4.5 g/dL (3.4-5.0); ALBUMIN/GLOBULIN RATIO 1.3 (1.0-1.7); TOTAL BILIRUBIN 0.8 mg/dL (0.2-1.0); TOTAL PROTEIN 7.9 g/dL (6.4-8.2)
[2021-08-11 08:00] VITALS: BP 110/66
== END | disposition home or self-care (01) ==
LOC: ER 05:48
DX: R10.13 Epigastric pain (principal); R11.2 Nausea with vomiting, unspecified; K21.9 Gastro-esophageal reflux disease without esophagitis; F17.210 Nicotine dependence, cigarettes, uncomplicated
CPT/HCPCS: 36415; 80053; 83690; 85025; 96374; 96375; 99284; C9113; J1200; J1630; J2270; J2405; J3490

== ENCOUNTER 2022-01-22 07:32 | Emergency (ER) | payer BC ==
[~2022-01-22] VITALS: Ht 182.9 cm; Wt 60.0 kg
[~2022-01-22 07:32] MED LIST changes: -FAMOTIDINE 20 MG/2 ML VIAL IVP ONE; -HALOPERIDOL LACT 5 MG/ML VIAL. IVP ONE; -MORPHINE SULFATE 4 MG/ML DISP.SYRIN. IV ONE; -ONDANSETRON PF 4 MG/2 ML VIAL. IVP ONE; -PANTOPRAZOLE IV 40 MG VIAL. IVP ONE; -diphenhydrAMINE 50 MG/ML VIAL IVP ONE
--- NOTE | 2022-01-22 07:44 | PHYS DOC ---
Past History Past Medical History: GERD, Other Additional Past Medical Histor: HIATIAL HERNIA Past Surgical History: Appendectomy, Other Additional Past Surgical Histo: right foot surgery for staph infection Smoking: Cigarettes Alcohol Use: None Drug Use: Marijuana General Adult EDM: Chief Complaint: ABDOMINAL PAIN HPI: HPI: Patient is a 26-year-old male here with epigastric abdominal pain, nausea, vomiting and diarrhea. He has a history of frequent abdominal pain issues, hiatal hernia. He sees a GI physician in [facility]. He has Zofran at home but he has not taken it today. He reports that the pain began after having a loose bowel movement today. He reports that the bowel movement appear to be darker than usual. He denies hematemesis or projectile or bilious vomiting. He denies fevers or chills. He denies chest pain or dyspnea. He has significant anxiety and reports that whenever he has this pain it causes him to have more severe anxiety and he feels like his hands are cramping, he is hyperventilating on arrival. He has had a previous appendectomy. He denies any previous history of bowel obstructions. He denies recent sick contacts, travel, recent hospitalizations. Denies fevers or chills. He denies cough, headache, sore throat. He denies urinary symptoms. Review of Systems: Review of Systems: Constitutional: Denies fever or chills HENT: Denies nasal congestion or sore throat Respiratory: Denies cough or shortness of breath Cardiovascular: Denies chest pain or edema GI: Upper abdominal pain, nausea, vomiting, loose stools. Denies hematemesis, hematochezia. : Denies urinary symptoms Musculoskeletal: Denies back pain or joint pain Integument: Denies rash Neurologic: Denies headache, focal weakness or sensory changes, denies dizziness, fall, head injury or syncope Psychiatric: Anxiety Allergies: Allergies: Allergies Coded Allergies Type Severity Reaction Last Updated Verified No Known Drug Allergies 08/11/21 No Physical Exam: PE: Constitutional: Well developed, well nourished, no acute distress, non-toxic appearance. Anxious, hyperventilating. Not acutely ill-appearing. HENT: Normocephalic, atraumatic, oropharynx is patent and clear, mucous membranes are moist. External ears are normal bilaterally. No evidence of fac ial or oral trauma. Eyes: PERRL, EOMI, conjunctiva normal, no discharge. No scleral icterus. Neck: Normal range of motion, no tenderness, supple, no stridor. Trachea is midline. No meningismus. Cardiovascular:Heart rate regular rhythm, was 2 radial and +2 posterior tibial pulses bilaterally. No edema. No cyanosis. Warm and well-perfused. Lungs & Thorax: Lungs are clear to auscultation bilateral without rales, rhonchi or wheezes. Abdomen: Abdomen is soft, nondistended, mild epigastric and left upper quadrant tenderness to palpation. Mild and inconsistent voluntary guarding, no involuntary guarding, no rigidity, no rebound tenderness. No lower abdominal tenderness. No palpable masses organomegaly. No flank abdominal ecchymoses. No palpable pulsatile mass. No CVA tenderness. Skin: Warm, dry, no erythema, no rash. No jaundice. Back: No tenderness, no CVA tenderness. Full range of motion. Extremities: No tenderness, no cyanosis, no clubbing, ROM intact, no edema. No calf tenderness. Neurologic: Alert and oriented X 3, normal motor function, normal sensory function, no focal deficits noted. [] Psychologic: Anxious, hyperventilating. He is cooperative. EKG: EKG: [] Radiology/Procedures: Radiology/Procedures: IMAGING REPORT Signed PATIENT: HALEY TOURE ACCOUNT: [id number] : 1995 LOCATION: ER AGE: 26 SEX: M EXAM STATUS: REG ER ORD. PHYSICIAN: KLEBER GOODWIN DO REASON: abd pain, n/v/diarrhea, OMNI 300, 75ml PROCEDURE: CT ABD PELV W/ IV CONTRST ONLY CT ABDOMEN+PELVIS W History: Abdominal pain, nausea vomiting and diarrhea. Comparison: CT abdomen and pelvis 11/16/2018 Technique: CT of the abdomen and pelvis with intravenous contrast. Findings: The lung bases are clear. The liver, gallbladder, pancreas, spleen, and adrenal glands are unremarkable. Subcentimeter hypodensity in the left kidney is too small to completely characterize most likely represents benign cyst. No no hydronephrosis. Stomach is decompressed. Mild wall thickening of the proximal small bowel loops. The ileum is unremarkable. Status post appendectomy. The colon is within normal limits. The bladder and prostate are unremarkable. No free intraperitoneal fluid or air. No adenopathy. Vasculature is within normal limits. Soft tissues are unremarkable. No significant osseous abnormality. Impression: 1. Mild wall thickening of the proximal small bowel loops may represent enteritis. Otherwise no acute or focal inflammatory changes in the abdomen and pelvis. ------ Exposure: One or more of the following individualized dose reduction techniques were utilized for this examination: 1. Automated exposure control 2. Adjustment of the mA and/or kV according to patient size 3. Use of iterative reconstruction technique. Electronically signed by: Damian Anderson MD (01/22/2022 9:21 AM) [id number] DICTATED AND SIGNED BY: DAMIAN ANDERSON MD DATE: 01/22/22912 CC: KLEBER GOODWIN DO; PCP,NO ~ Heart Score: C/O Chest Pain: No Risk Factors: Risk Factors: DM, Current or recent (<one month) smoker, HTN, HLP, family history of CAD, obesity. Risk Scores: Score 0 - 3: 2.5% MACE over next 6 weeks - Discharge Home Score 4 - 6: 20.3% MACE over next 6 weeks - Admit for Clinical Observation Score 7 - 10: 72.7% MACE over next 6 weeks - Early Invasive Strategies Course & Med Decision Making: Course & Med Decision Making Pertinent Labs and Imaging studies reviewed. (See chart for details) The patient is given IV fluids, IV Zofran, IV morphine x2, IV Ativan and IV Toradol. He is resting comfortably. He has a nonsurgical abdominal exam. I have discussed the findings, differential diagnosis and plan of care with the patient. No indication for further invasive exams, imaging or admission at this time. He is tolerating oral fluids without difficulty. He has Phenergan and Zofran at home. I recommend he contact his PCP and [facility] for further evaluation and treatment and further discussion of care. Return precautions are given. He is comfortable with this plan, he is discharged in stable and improved condition. Dragon Disclaimer: Dragon Disclaimer: This electronic medical record was generated, in whole or in part, using a voice recognition dictation system. Departure Departure: Impression: Primary Impression: Generalized abdominal pain Additional Impression: Nausea vomiting and diarrhea Disposition: HOME / SELF CARE / HOMELESS Condition: STABLE Referrals: PCP,NO (PCP) Patient Instructions: Abdominal Pain (Nonspecific), Viral Gastroenteritis Additional Instructions: Use the medication as needed/as directed. Eat a bland diet, drink clear fluids. Return to the ER for more severe abdominal pain, uncontrolled vomiting, vomiting blood, temperature 100.4 or higher, chest pain, shortness of breath or other concerns. Please follow-up with your primary care doctor and your GI physician. Scripts Hydrocodone Bit/Acetaminophen (HYDROCODONE-APAP 5-325 ) 1 Each Tablet 1 TAB PO PRN Q6HRS PRN for PAIN, #12 TAB 0 Refills Prov: KLEBER GOODWIN DO 01/22/22 KLEBER GOODWIN DO Jan 22, 2022 07:44
[2022-01-22] MEDS ORDERED: IV NORMAL SALINE 1,000ML 1,000 ML IV ONE (08:00)
[2022-01-22] MEDS ORDERED: MORPHINE SULFATE 4 MG/ML DISP.SYRIN. IV ONE ×2 (08:00→08:45)
[2022-01-22] MEDS ORDERED: ONDANSETRON PF 4 MG/2 ML VIAL. IVP ONE ×2 (08:00→09:15)
[2022-01-22 08:15] LABS: BASO # 0.1 x10^3/uL (0.0-0.2); BASO % 1 % (0-3); EOS % 0 % (0-3); HEMATOCRIT 49.8 % (39.0-53.0); HEMOGLOBIN 16.7 g/dL (13.0-17.5); LYMPH # 2.1 x10^3/uL (1.0-4.8); LYMPH % 20 % (24-48); MEAN CORPUSCULAR HEMOGLOBIN 31 pg (25-35); MEAN CORPUSCULAR HGB CONC 34 g/dL (31-37); MEAN CORPUSCULAR VOLUME 93 fL (79-100); MONO # 0.6 x10^3/uL (0.0-1.1); MONO % 6 % (0-9); NEUT # 7.6 x10^3uL (1.8-7.7); NEUT % 73 % (31-73); PLATELET COUNT 280 x10^3/uL (140-400); RED BLOOD COUNT 5.38 x10^6/uL (4.30-5.70); RED CELL DISTRIBUTION WIDTH 13.7 % (11.5-14.5); WHITE BLOOD COUNT 10.4 x10^3/uL (4.0-11.0)
[2022-01-22] MEDS ORDERED: ALBUTEROL SULFATE 8GM INHALER. INH ONE (08:30)
[2022-01-22 08:34] LABS: CALCIUM 9.7 mg/dL (8.5-10.1); CREATININE 1.1 mg/dL (0.7-1.3); GFR 80.3; POTASSIUM 3.5 mmol/L (3.5-5.1)
[2022-01-22 08:39] LABS: ALBUMIN 4.4 g/dL (3.4-5.0); ALBUMIN/GLOBULIN RATIO 1.3 (1.0-1.7); MAGNESIUM 1.8 mg/dL (1.8-2.4); TOTAL BILIRUBIN 0.5 mg/dL (0.2-1.0); TOTAL PROTEIN 7.7 g/dL (6.4-8.2)
[2022-01-22] MEDS ORDERED: IOHEXOL 300 MG/ML 75 ML VIAL. IV ONE (08:45)
--- NOTE | 2022-01-22 09:23 | RAD ---
CT ABDOMEN+PELVIS W History: Abdominal pain, nausea vomiting and diarrhea. Comparison: CT abdomen and pelvis 11/16/2018 Technique: CT of the abdomen and pelvis with intravenous contrast. Findings: The lung bases are clear. The liver, gallbladder, pancreas, spleen, and adrenal glands are unremarkab le. Subcentimeter hypodensity in the left kidney is too small to completely characterize most likely represents benign cyst. No no hydronephrosis. Stomach is decompressed. Mild wall thickening of the proximal small bowel loops. The ileum is unremar kable. Status post appendectomy. The colon is within normal limits. The bladder and prostate are unremarkable. No free intraperitoneal fluid or air. No adenopathy. Vascu lature is within normal limits. Soft tissues are unremarkable. No significant osseous abnormality. Impression: 1. Mild wall thickening of the proximal small bowel loops may represent enteritis. Otherwise no acut e or focal inflammatory changes in the abdomen and pelvis. ------ Exposure: One or more of the following individualized dose reduction techniques were utilized for thi s examination: 1. Automated exposure control 2. Adjustment of the mA and/or kV according to patient size 3. Use of iterative reconstruction technique. Electronically signed by: Damian Anderson MD (01/22/2022 9:21 AM) [id number]
[2022-01-22 09:37] VITALS: BP 105/49
[2022-01-22 09:47] LABS: BACTERIA,URINE 0 /HPF (0-FEW); CLARITY,URINE CLEAR; COLOR,URINE YELLOW; GLUCOSE,URINE NEG (NEG); NITRITE,URINE NEG (NEG); UROBILINOGEN,URINE 0.2 mg/dL (0.2 mg/dL)
[2022-01-22] MEDS ORDERED: KETOROLAC 15 MG/ML VIAL. IVP ONE (10:15)
[2022-01-22] MEDS ORDERED: HYDR-2155 PO (10:22)
== END 2022-01-22 10:34 | disposition home or self-care (01) ==
LOC: ER 07:32
DX: R10.84 Generalized abdominal pain (principal); R11.2 Nausea with vomiting, unspecified; R19.7 Diarrhea, unspecified; K21.9 Gastro-esophageal reflux disease without esophagitis; F17.210 Nicotine dependence, cigarettes, uncomplicated; Z90.89 Acquired absence of other organs
CPT/HCPCS: 36415; 74177; 80053; 81001; 83690; 83735; 85025; 96361; 96374; 96375; 96376; 99285; J1885; J2060; J2270; J2405; J7030; Q9967

== ENCOUNTER 2022-01-26 16:30 | Emergency (ER) | payer BC ==
[~2022-01-26] VITALS: Ht 182.9 cm; Wt 61.0 kg
[~2022-01-26 16:30] MED LIST changes: +HYDR-2155 PO
[2022-01-26 16:48] VITALS: BP 168/93
[2022-01-26] MEDS ORDERED: IV NORMAL SALINE 1,000ML 1,000 ML IV ONE (17:15)
[2022-01-26] MEDS ORDERED: ONDANSETRON PF 4 MG/2 ML VIAL. IVP ONE (17:15)
[2022-01-26 17:34] LABS: BASO # 0.1 x10^3/uL (0.0-0.2); BASO % 1 % (0-3); EOS # 0.1 x10^3/uL (0.0-0.7); EOS % 1 % (0-3); HEMOGLOBIN 16.7 g/dL (13.0-17.5); LYMPH % 36 % (24-48); MEAN CORPUSCULAR HEMOGLOBIN 31 pg (25-35); MEAN CORPUSCULAR HGB CONC 34 g/dL (31-37); MEAN CORPUSCULAR VOLUME 93 fL (79-100); MONO # 0.7 x10^3/uL (0.0-1.1); MONO % 8 % (0-9); NEUT # 4.6 x10^3uL (1.8-7.7); NEUT % 54 % (31-73); PLATELET COUNT 276 x10^3/uL (140-400); RED CELL DISTRIBUTION WIDTH 13.6 % (11.5-14.5); WHITE BLOOD COUNT 8.4 x10^3/uL (4.0-11.0)
[2022-01-26 17:44] LABS: CALCIUM 9.6 mg/dL (8.5-10.1); CREATININE 1.1 mg/dL (0.7-1.3); GFR 80.3; POTASSIUM 3.5 mmol/L (3.5-5.1)
[2022-01-26 17:50] LABS: ALBUMIN 4.2 g/dL (3.4-5.0); ALBUMIN/GLOBULIN RATIO 1.3 (1.0-1.7); TOTAL BILIRUBIN 0.6 mg/dL (0.2-1.0); TOTAL PROTEIN 7.5 g/dL (6.4-8.2)
[2022-01-26] MEDS ORDERED: HALOPERIDOL LACT 5 MG/ML VIAL. IVP ONE (18:15)
[2022-01-26] MEDS ORDERED: HALOPERIDOL LACT 5 MG/ML VIAL. ONE (18:15)
[2022-01-26] MEDS ORDERED: PROMETHAZINE 12.5 MG SUPP.RECT. ONE (18:26)
[2022-01-26] MEDS: PROMETHAZINE 12.5 MG SUPP.RECT. PR ONE ×2 (18:30→18:36)
[2022-01-26] MEDS ORDERED: diphenhydrAMINE 50 MG/ML VIAL IVP ONE (18:30)
--- NOTE | 2022-01-26 18:31 | PHYS DOC ---
Past History Past Medical History: GERD, Other Additional Past Medical Histor: HIATIAL HERNIA (AMANDA CARTER APRN) Past Surgical History: Appendectomy, Other Additional Past Surgical Histo: right foot surgery for staph infection (AMANDA CARTER APRN) Smoking: Cigarettes Alcohol Use: None Drug Use: Marijuana (AMANDA CARTER APRN) General Adult EDM: Chief Complaint: ABDOMINAL PAIN HPI: HPI: Patient is a 26-year-old male who presents to the emergency department for epigastric abdominal pain with nausea and vomiting. Patient reports that he has had these symptoms intermittently over the last 3 years. Patient has a GI doctor who reported that he has a hiatal hernia. He takes Protonix at home. Patient was seen in this emergency department for similar complaints on January 22 and at that time had a CT scan which showed enteritis and he was treated with pain medication. Patient denies urinary symptoms, fever, diarrhea. With [] patient does report marijuana use. (AMANDA CARTER APRN) Review of Systems: Review of Systems: Constitutional: See HPI GI: See HPI : See HPI (AMANDA CARTER APRN) Current Medications: Current Meds: Current Medications Medications (Trade) Dose Ordered Sig/Thania Start Time Stop Time Status Last Admin Dose Admin Diphenhydramine HCl (Benadryl) 25 mg 1X ONCE 01/26/22 18:30 01/26/22 18:31 Haloperidol Lactate (Haldol) 5 mg STK-MED ONCE 01/26/22 18:15 01/26/22 18:15 DC Lorazepam (Ativan Inj) 1 mg 1X ONCE 01/26/22 18:30 01/26/22 18:31 UNV Ondansetron HCl (Zofran) 4 mg 1X ONCE 01/26/22 17:15 01/26/22 17:16 DC 01/26/22 17:15 4 MG Promethazine HCl (Phenergan Supp) 12.5 mg 1X ONCE 01/26/22 18:30 01/26/22 18:31 Sodium Chloride 1,000 ml @ 1,000 mls/hr 1X ONCE 01/26/22 17:15 01/26/22 18:14 DC 01/26/22 17:20 1,000 MLS/HR (AMANDA CARTER APRN) Allergies: Allergies: Allergies Coded Allergies Type Severity Reaction Last Updated Verified No Known Drug Allergies 08/11/21 No (AMANDA CARTER APRN) Physical Exam: PE: Constitutional: Well developed, well nourished, no acute distress, non-toxic appearance. [] HENT: Normocephalic, atraumatic, bilateral external ears normal, oropharynx moist, no oral exudates, nose normal. [] Eyes: PERRL, EOMI, conjunctiva normal, no discharge. [] Neck: Normal range of motion, no tenderness, supple, no stridor. [] Cardiovascular:Heart rate regular rhythm, no murmur [] Lungs & Thorax: Bilateral breath sounds clear to auscultation [] Abdomen: Bowel sounds normal, soft, gastric tenderness with palpation, no abdominal guarding or rigidity,, no masses, no pulsatile masses. [] Skin: Warm, dry, no erythema, no rash. [] Back: No tenderness, no CVA tenderness. [] Extremities: No tenderness, no cyanosis, no clubbing, ROM intact, no edema. [] Neurologic: Alert and oriented X 3, normal motor function, normal sensory function, no focal deficits noted. [] Psychologic: Affect normal, judgement normal, mood normal. [] (AMANDA CARTER APRN) Current Patient Data: Labs: Laboratory Tests Test 01/26/22 17:09 White Blood Count 8.4 x10^3/uL (4.0-11.0) Red Blood Count 5.40 x10^6/uL (4.30-5.70) Hemoglobin 16.7 g/dL (13.0-17.5) Hematocrit 50.0 % (39.0-53.0) Mean Corpuscular Volume 93 fL (79-100) Mean Corpuscular Hemoglobin 31 pg (25-35) Mean Corpuscular Hemoglobin Concent 34 g/dL (31-37) Red Cell Distribution Width 13.6 % (11.5-14.5) Platelet Count 276 x10^3/uL (140-400) Neutrophils (%) (Auto) 54 % (31-73) Lymphocytes (%) (Auto) 36 % (24-48) Monocytes (%) (Auto) 8 % (0-9) Eosinophils (%) (Auto) 1 % (0-3) Basophils (%) (Auto) 1 % (0-3) Neutrophils # (Auto) 4.6 x10^3uL (1.8-7.7) Lymphocytes # (Auto) 3.0 x10^3/uL (1.0-4.8) Monocytes # (Auto) 0.7 x10^3/uL (0.0-1.1) Eosinophils # (Auto) 0.1 x10^3/uL (0.0-0.7) Basophils # (Auto) 0.1 x10^3/uL (0.0-0.2) Sodium Level 142 mmol/L (136-145) Potassium Level 3.5 mmol/L (3.5-5.1) Chloride Level 103 mmol/L (98-107) Carbon Dioxide Level 20 mmol/L (21-32) L Anion Gap 19 (6-14) H Blood Urea Nitrogen 18 mg/dL (8-26) Creatinine 1.1 mg/dL (0.7-1.3) Estimated GFR (Cockcroft-Gault) 80.3 BUN/Creatinine Ratio 16 (6-20) Glucose Level 113 mg/dL (70-99) H Calcium Level 9.6 mg/dL (8.5-10.1) Total Bilirubin 0.6 mg/dL (0.2-1.0) Aspartate Amino Transferase (AST) 12 U/L (15-37) L Alanine Aminotransferase (ALT) 19 U/L (16-63) Alkaline Phosphatase 59 U/L (46-116) Total Protein 7.5 g/dL (6.4-8.2) Albumin 4.2 g/dL (3.4-5.0) Albumin/Globulin Ratio 1.3 (1.0-1.7) Lipase 67 U/L (73-393) L Vital Signs: Vital Signs Date Time Temp Pulse Resp B/P (MAP) Pulse Ox O2 Delivery O2 Flow Rate FiO2 01/26/22 16:48 97.3 86 24 168/93 (118) 100 (AMANDA CARTER APRN) EKG: EKG: EKG performed by ER staff at 1806 shows sinus rhythm with rate of 86, QTc is 455, no STEMI read by Dr. Negrete [] (AMANDA CARTER APRN) Radiology/Procedures: Radiology/Procedures: [] (AMANDA CARTER APRN) Heart Score: C/O Chest Pain: N/A Risk Factors: Risk Factors: DM, Current or recent (<one month) smoker, HTN, HLP, family history of CAD, obesity. Risk Scores: Score 0 - 3: 2.5% MACE over next 6 weeks - Discharge Home Score 4 - 6: 20.3% MACE over next 6 weeks - Admit for Clinical Observation Score 7 - 10: 72.7% MACE over next 6 weeks - Early Invasive Strategies (AMANDA CARTER APRN) Course & Med Decision Making: Course & Med Decision Making Pertinent Labs and Imaging studies reviewed. (See chart for details) [] Patient presents to the emergency department for epigastric abdominal pain with nausea and vomiting have been intermittent for the last 3 years. Patient believes this is due to his hiatal hernia. Patient has a GI doctor, Dr. Colin for which she follows up with and he takes Protonix. Work-up in the ER consisted of blood work and urinalysis. Patient was seen in this emergency department 3 days ago and did have a CT scan of his abdomen and pelvis which did show enteritis. Patient treated with IV fluids and Zofran. Patient has not had any emesis in the emergency department but continues to dry heave. Patient will be treated with Haldol as it is possible that he is an hyperemesis due to cannabinoid use. Patient has become very aggressive with the ER staff and is requesting pain medication. He states that he always has the symptoms and it never gets better unless he gets pain medication. Consulted supervising physician. Patient will be treated with Benadryl, Ativan and Phenergan. Patient refused Phenergan suppository. Following treatment in the emergency department he reports that his nausea has resolved. He was given oral pain medication. Patient advised to follow-up with his GI doctor if he requires any additional pain management. Patient's vital signs are stable. He is not actively vomiting. I discussed with patient all findings and diagnostic testing as well as the need to follow-up with PCP for further evaluation and treatment or return to the ER if any new or worsening symptoms. Strict return precautions were also discussed at length. Patient voiced understanding and agreement with the plan. Patient is hemodynamically stable at the time of disposition. (AMANDA CARTER APRN) Course & Med Decision Making Did not see or evaluate patient. Did not discuss patient with DIRECTOR PROCESS ENGINEERING. Generally agree with DIRECTOR PROCESS ENGINEERING's work-up and disposition per note (NICOLE NEGRETE MD) Dragon Disclaimer: Dragon Disclaimer: This electronic medical record was generated, in whole or in part, using a voice recognition dictation system. (AMANDA CARTER APRN) Departure Departure: Impression: Primary Impression: Nausea & vomiting Qualified Codes: R11.2 - Nausea with vomiting, unspecified Disposition: HOME / SELF CARE / HOMELESS Condition: GOOD Referrals: PCP,NO (PCP) Patient Instructions: Nausea and Vomiting Additional Instructions: You were seen in the emergency department today for abdominal pain with nausea and vomiting. You are being discharged home with nausea medication that you can take as needed. If you require any additional pain management you will need to follow-up with your GI doctor. I would advise you to contact your GI doctor on Thursday regarding your multiple ER visits. Return to the emergency department in which her GI doctor practices as do not have GI coverage here if you develop high fevers refractory to treatment, intractable nausea or vomiting, severe abdominal pain, blood in your stools or vomit or any new or worsening concerns. Scripts Ondansetron (ONDANSETRON ODT) 4 Mg Tab.rapdis 1 TAB PO PRN Q6-8HRS for nausea for 7 Days, #28 TAB 0 Refills Prov: AMANDA CARTER APRN 01/26/22 AMANDA CARTER APRN Jan 26, 2022 18:31 NICOLE NEGRETE MD Jan 26, 2022 19:14
--- NOTE | 2022-01-26 18:34 | EKG ---
[address] [address] Test Date: 2022-01-26 Test Time: 18:06:28 Pat Name: HALEY TOURE Department: Room: Gender: M Purification Supervisor: : 1995 Requested By: AMANDA CARTER Order Number: [id number] Reading MD: George Loera Measurements Intervals [place] Rate: 86 P: 62 CA: 124 QRS: 86 QRSD: 96 T: 49 QT: 378 QTc: 455 Interpretive Statements SINUS RHYTHM INCOMPLETE RIGHT BUNDLE BRANCH BLOCK Electronically Signed On 01-29-2022 18:23:28 CDT by George Loera
[2022-01-26] MEDS ORDERED: ONDA4TAB12 PO (19:12)
[2022-01-26] MEDS ORDERED: HYDROcodone/APAP 5/325MG 1 TAB TABLET PO ONE (19:15)
== END 2022-01-26 19:30 | disposition home or self-care (01) ==
LOC: ER 16:30
DX: R11.2 Nausea with vomiting, unspecified (principal); R10.13 Epigastric pain; K21.9 Gastro-esophageal reflux disease without esophagitis; F17.210 Nicotine dependence, cigarettes, uncomplicated; Z90.89 Acquired absence of other organs
CPT/HCPCS: 36415; 80053; 83690; 85025; 93005; 96361; 96374; 96375; 99284; J1200; J1630; J2060; J2405; J7030